=== PATIENT | female | born 1960 | race Caucasian/White ===

== ENCOUNTER 2020-12-30 09:12 | Emergency (ER) | payer MEDICAID, SELFPAY ==
[~2020-12-30] VITALS: Ht 157.5 cm; Wt 49.8 kg
[2020-12-30 09:13] VITALS: BP 131/61
[2020-12-30] MEDS ORDERED: IBUP200T45 PO (09:27)
[2020-12-30 12:25] LABS: BASO # 0.1 10^3/uL (0.0-0.2); BASO % 1.2 % (0.0-1.0); EOS # 0.1 10^3/uL (0.0-0.5); EOS % 1.7 % (0.0-3.0); HEMOGLOBIN 13.8 g/dl (12.0-15.5); LYMPH # 1.8 10^3/uL (1.5-5.0); LYMPH % 31.5 % (24.0-44.0); MEAN CORPUSCULAR HEMOGLOBIN 30.9 pg (27.0-33.0); MEAN CORPUSCULAR HGB CONC 32.1 g/dl (32.0-36.5); MEAN CORPUSCULAR VOLUME 96.2 fl (80.0-96.0); MONO # 0.5 10^3/uL (0.0-0.8); MONO % 7.8 % (2.0-8.0); NEUTROPHILS # 3.3 10^3/uL (1.5-8.5); NEUTROPHILS % 57.6 % (36.0-66.0); PLATELET COUNT, AUTOMATED 340 10^3/uL (150-450); RED BLOOD COUNT 4.47 10^6/uL (4.00-5.40); WHITE BLOOD COUNT 5.8 10^3/uL (4.0-10.0)
--- NOTE | 2020-12-30 12:26 | REP ---
INDICATION: L shoulder pain COMPARISON: None. TECHNIQUE: Axial noncontrast images from the skull base to the thoracic inlet with coronal reformations. This CT examination was performed using the following dose reduction techniques: Automated exposure control, adjustment of mA and/or kv according to the patient's size, and use of iterative reconstruction technique. FINDINGS: Age-related atrophy with periventricular leukomalacia and microvascular ischemic changes are appreciated. The ventricles and sulci are symmetric. Fitch-white differentiation is maintained. There is no evidence for acute intracranial hemorrhage, mass/mass effect, pathology or infarction. No extra-axial fluid collection. Calvarium is intact. Paranasal sinuses and mastoid air cells are clear. IMPRESSION: Age-related atrophy and microvascular ischemic changes. No acute intracranial hemorrhage, infarction, or mass/mass effect. <Electronically signed by Parminder Corey > 12/30/20 [id number]
--- NOTE | 2020-12-30 12:30 | REP ---
INDICATION: L shoulder pain COMPARISON: None. TECHNIQUE: Axial noncontrast images from the skull base to the thoracic inlet with coronal and sagittal re-formations This CT examination was performed using the following dose reduction techniques: Automated exposure control, adjustment of mA and/or kv according to the patient's size, and use of iterative reconstruction technique. FINDINGS: There is mild reversal of normal lordosis centered at approximately C4-5 and chronic 2 mm of anterolisthesis at C3-4 level. No evidence for acute fracture/compression injury. Advanced degenerative changes include endplate sclerosis/heterogeneity, disc space narrowing and osteophytosis with facet arthropathy primarily involving C5-6 and to a lesser extent C4-5 and C6-7. There is chronic canal stenosis and narrowing to the neural foramen involving C5-6 and C4-5 levels (right greater than left). IMPRESSION: Advanced multilevel degenerative spondylosis. <Electronically signed by Parminder Corey > 12/30/20 [id number]
--- NOTE | 2020-12-30 12:43 | REP ---
INDICATION: L shoulder pain COMPARISON: None. TECHNIQUE: Internal rotation, external rotation, and Y view. FINDINGS: No acute fracture or dislocation. The acromioclavicular and glenohumeral joints are intact. No periarticular calcifications or degenerative changes are appreciated. Sub acromial space is normal. Surrounding soft tissues are unremarkable. IMPRESSION: Normal age-appropriate left shoulder radiographs. <Electronically signed by Parminder Croey > 12/30/20 [id number]
[2020-12-30 12:57] LABS: ALT/SGPT 23 U/L (12-78); BILIRUBIN,DIRECT 0.1 MG/DL (0.0-0.2); BILIRUBIN,TOTAL 0.4 MG/DL (0.2-1.0); BLOOD UREA NITROGEN 11 MG/DL (7-18); CALCIUM LEVEL 9.6 MG/DL (8.8-10.2); CARBON DIOXIDE LEVEL 29 MEQ/L (21-32); CHLORIDE LEVEL 109 MEQ/L (98-107); CREATININE FOR GFR 0.65 MG/DL (0.55-1.30); GLOMERULAR FILTRATION RATE > 60.0 (>45); GLUCOSE, FASTING 89 MG/DL (70-100); POTASSIUM SERUM 4.3 MEQ/L (3.5-5.1); SODIUM LEVEL 143 MEQ/L (136-145); TOTAL PROTEIN 7.1 GM/DL (6.4-8.2)
[2020-12-30 13:02] LABS: CK-MB VALUE MASS < 1.0 NG/ML (<3.6); CPK CREATINE PHOSPHOKINASE 76 U/L (26-192); MB/CK RELATIVE INDEX 1.32 (< OR =4); TROPONIN I < 0.02 NG/ML (< 0.10)
[2020-12-30 13:03] LABS: APPEARANCE, URINE CLEAR (CLEAR); BACTERIA, URINE AUTO NEGATIVE (NEGATIVE); BILIRUBIN, URINE AUTO NEGATIVE (NEGATIVE); BLOOD, URINE BLOOD NEGATIVE (NEGATIVE); COLOR, URINE YELLOW (YELLOW); GLUCOSE, URINE (UA) AUTO NEGATIVE (NEGATIVE); KETONE, URINE AUTO NEGATIVE (NEGATIVE); LEUKOCYTE ESTERASE, URINE AUTO NEGATIVE (NEGATIVE); MUCUS, URINE SMALL (NEGATIVE); NITRITE, URINE AUTO NEGATIVE (NEGATIVE); PROTEIN, URINE AUTO NEGATIVE (NEGATIVE); RBC, URINE AUTO 0 /HPF (0-3); SPECIFIC GRAVITY URINE AUTO 1.012 (1.002-1.035); SQUAMOUS EPITHELIAL CELL UR AU 0 /HPF (0-6); UROBILINOGEN, URINE AUTO 0.2 mg/dL (0.0-2.0); WBC, URINE AUTO 0 /HPF (0-3)
[2020-12-30 13:21] LABS: AMPHETAMINES LEVEL URINE NEGATIVE (NEGATIVE); BARBITURATES URINE NEGATIVE (NEGATIVE); BENZODIAZEPINES URINE NEGATIVE (NEGATIVE); CANNABINOIDS URINE NEGATIVE (NEGATIVE); COCAINE METABOLITE URINE NEGATIVE (NEGATIVE); METHADONE URINE NEGATIVE (NEGATIVE); OPIATES URINE NEGATIVE (NEGATIVE); PHENCYCLIDINE URINE NEGATIVE (NEGATIVE)
[2020-12-30 13:59] LABS: C REACTIVE PROTEIN QUANTITATIV < 0.30 MG/DL (0.00-0.30)
[2020-12-30 14:11] LABS: VITAMIN B12 LEVEL 441 PG/ML (247-911)
[2020-12-30 14:33] LABS: ERYTHROCYTE SEDIMENTATION RATE 7 mm/hr (0-30)
--- NOTE | 2020-12-30 17:45 | ECGEPIP ---
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
== END 2020-12-30 14:47 | disposition home or self-care (01) ==
LOC: M ED 09:12
DX: M47.812 Spondylosis without myelopathy or radiculopathy, cervical region (principal); M19.012 Primary osteoarthritis, left shoulder; G30.8 Other Alzheimer's disease; R00.1 Bradycardia, unspecified; I45.19 Other right bundle-branch block; F17.200 Nicotine dependence, unspecified, uncomplicated

== ENCOUNTER 2021-05-03 09:45 | Inpatient (IN) | payer MEDICAID ==
[~2021-05-03] VITALS: Ht 170.2 cm; Wt 43.2 kg
[~2021-05-03 09:45] MED LIST: IBUP200T46 PO
[2021-05-03] MEDS ORDERED: DONE10TA90 PO (10:11)
[2021-05-03] MEDS ORDERED: VITA200016 PO (10:11)
[2021-05-03] MEDS ORDERED: CYAN1000VL IM (10:11)
[2021-05-03] MEDS ORDERED: MEMA10TA19 PO (10:11)
[2021-05-03 10:54] LABS: BASO % 0.6 % (0.0-1.0); EOS # 0.1 10^3/uL (0.0-0.5); EOS % 1.9 % (0.0-3.0); HEMATOCRIT 40.4 % (36.0-47.0); HEMOGLOBIN 12.8 g/dl (12.0-15.5); LYMPH # 1.6 10^3/uL (1.5-5.0); LYMPH % 24.8 % (24.0-44.0); MEAN CORPUSCULAR HEMOGLOBIN 30.9 pg (27.0-33.0); MEAN CORPUSCULAR HGB CONC 31.7 g/dl (32.0-36.5); MEAN CORPUSCULAR VOLUME 97.6 fl (80.0-96.0); MONO # 0.6 10^3/uL (0.0-0.8); MONO % 9.1 % (2.0-8.0); NEUTROPHILS % 63.3 % (36.0-66.0); PLATELET COUNT, AUTOMATED 309 10^3/uL (150-450); RED BLOOD COUNT 4.14 10^6/uL (4.00-5.40); WHITE BLOOD COUNT 6.3 10^3/uL (4.0-10.0)
[2021-05-03 11:26] LABS: CK-MB VALUE MASS < 1.0 NG/ML (<3.6); CPK CREATINE PHOSPHOKINASE 83 U/L (26-192); RSV AMPLIFICATION NEGATIVE (NEGATIVE)
[2021-05-03 11:32] LABS: ALBUMIN 3.7 GM/DL (3.2-5.2); ALT/SGPT 42 U/L (12-78); BILIRUBIN,DIRECT < 0.1 MG/DL (0.0-0.2); BILIRUBIN,TOTAL 0.3 MG/DL (0.2-1.0); BLOOD UREA NITROGEN 8 MG/DL (7-18); CARBON DIOXIDE LEVEL 29 MEQ/L (21-32); CHLORIDE LEVEL 107 MEQ/L (98-107); CREATININE FOR GFR 0.55 MG/DL (0.55-1.30); GLOMERULAR FILTRATION RATE > 60.0 (>45); GLUCOSE, FASTING 96 MG/DL (70-100); NT-PRO BNP 114 PG/ML (<125); POTASSIUM SERUM 3.5 MEQ/L (3.5-5.1); SODIUM LEVEL 144 MEQ/L (136-145); TOTAL PROTEIN 6.8 GM/DL (6.4-8.2)
[2021-05-03] MEDS ORDERED: HOME MED LIST COMPLETE! XX SCH (14:40)
[2021-05-03] MEDS ORDERED: ACETAMINOPHEN TAB 650MG DOSE (2X325MG) PO PRN (14:55)
[2021-05-03] MEDS: QUEtiapine FUMARATE 12.5 MG HALF-TAB PO PRN (15:45)
[2021-05-03 17:27] VITALS: BP 136/70
[2021-05-03] MEDS ORDERED: NICOTINE 14 MG/24 HR TRANSDERMAL TD PRN (17:50)
[2021-05-03] MEDS: ENOXAPARIN 40MG/0.4ML SYRINGE (J1650 PER 10MG) SC SCH (18:07)
[2021-05-03] MEDS: DONEPEZIL 5 MG TAB PO SCH (21:05)
[2021-05-03] MEDS: MEMANTINE 5MG TABLET (NAMENDA) PO SCH (21:05)
[2021-05-03 22:00] VITALS: BP 124/53
[2021-05-04 05:45] VITALS: BP 121/66
[2021-05-04 06:38] LABS: HEMATOCRIT 39.8 % (36.0-47.0); HEMOGLOBIN 12.7 g/dl (12.0-15.5); MEAN CORPUSCULAR HEMOGLOBIN 30.8 pg (27.0-33.0); MEAN CORPUSCULAR HGB CONC 31.9 g/dl (32.0-36.5); MEAN CORPUSCULAR VOLUME 96.6 fl (80.0-96.0); PLATELET COUNT, AUTOMATED 319 10^3/uL (150-450); RED BLOOD COUNT 4.12 10^6/uL (4.00-5.40); WHITE BLOOD COUNT 4.9 10^3/uL (4.0-10.0)
[2021-05-04 07:01] LABS: BLOOD UREA NITROGEN 10 MG/DL (7-18); CALCIUM LEVEL 8.8 MG/DL (8.8-10.2); CARBON DIOXIDE LEVEL 29 MEQ/L (21-32); CHLORIDE LEVEL 108 MEQ/L (98-107); CREATININE FOR GFR 0.58 MG/DL (0.55-1.30); GLOMERULAR FILTRATION RATE > 60.0 (>45); GLUCOSE, FASTING 81 MG/DL (70-100); POTASSIUM SERUM 3.7 MEQ/L (3.5-5.1); SODIUM LEVEL 141 MEQ/L (136-145)
[2021-05-04] MEDS: ENOXAPARIN 40MG/0.4ML SYRINGE (J1650 PER 10MG) SC SCH (08:10)
[2021-05-04] MEDS: MEMANTINE 5MG TABLET (NAMENDA) PO SCH ×2 (08:10→20:54)
[2021-05-04 14:00] VITALS: BP 101/53
[2021-05-04] MEDS: DONEPEZIL 5 MG TAB PO SCH (20:54)
[2021-05-04 22:00] VITALS: BP 114/56
[2021-05-05 06:00] VITALS: BP 116/59
[2021-05-05] MEDS: MEMANTINE 5MG TABLET (NAMENDA) PO SCH ×2 (08:43→19:54)
[2021-05-05] MEDS: ENOXAPARIN 40MG/0.4ML SYRINGE (J1650 PER 10MG) SC SCH (08:43)
[2021-05-05 09:41] LABS: FOLATE 19.7 NG/ML (>5.4); TOTAL 25(OH) VITAMIN D 34.6 NG/ML (30.0-100.0); VITAMIN B12 LEVEL 227 PG/ML (247-911)
[2021-05-05] MEDS: DONEPEZIL 5 MG TAB PO SCH (19:54)
[2021-05-06 06:00] VITALS: BP 114/55
[2021-05-06] MEDS: MEMANTINE 5MG TABLET (NAMENDA) PO SCH ×2 (09:01→20:14)
[2021-05-06] MEDS: ENOXAPARIN 40MG/0.4ML SYRINGE (J1650 PER 10MG) SC SCH (09:01)
[2021-05-06] MEDS: DONEPEZIL 5 MG TAB PO SCH (20:14)
[2021-05-07 05:53] VITALS: BP 146/79
[2021-05-07 07:18] LABS: HEMATOCRIT 39.4 % (36.0-47.0); HEMOGLOBIN 12.7 g/dl (12.0-15.5); MEAN CORPUSCULAR HEMOGLOBIN 31.2 pg (27.0-33.0); MEAN CORPUSCULAR HGB CONC 32.2 g/dl (32.0-36.5); MEAN CORPUSCULAR VOLUME 96.8 fl (80.0-96.0); PLATELET COUNT, AUTOMATED 313 10^3/uL (150-450); RED BLOOD COUNT 4.07 10^6/uL (4.00-5.40); WHITE BLOOD COUNT 4.1 10^3/uL (4.0-10.0)
[2021-05-07 07:43] LABS: BLOOD UREA NITROGEN 9 MG/DL (7-18); CALCIUM LEVEL 8.9 MG/DL (8.8-10.2); CARBON DIOXIDE LEVEL 28 MEQ/L (21-32); CHLORIDE LEVEL 108 MEQ/L (98-107); CREATININE FOR GFR 0.63 MG/DL (0.55-1.30); GLOMERULAR FILTRATION RATE > 60.0 (>45); GLUCOSE, FASTING 91 MG/DL (70-100); SODIUM LEVEL 143 MEQ/L (136-145)
[2021-05-07] MEDS: MEMANTINE 5MG TABLET (NAMENDA) PO SCH ×2 (08:01→20:04)
[2021-05-07] MEDS: ENOXAPARIN 40MG/0.4ML SYRINGE (J1650 PER 10MG) SC SCH (08:01)
[2021-05-07] MEDS: DONEPEZIL 5 MG TAB PO SCH (20:04)
[2021-05-08 06:03] VITALS: BP 127/59
[2021-05-08] MEDS: ENOXAPARIN 40MG/0.4ML SYRINGE (J1650 PER 10MG) SC SCH (08:25)
[2021-05-08] MEDS: MEMANTINE 5MG TABLET (NAMENDA) PO SCH ×2 (08:25→20:07)
[2021-05-08] MEDS: DONEPEZIL 5 MG TAB PO SCH (20:07)
[2021-05-09 06:00] VITALS: BP 115/61
[2021-05-09] MEDS: MEMANTINE 5MG TABLET (NAMENDA) PO SCH ×2 (08:06→19:57)
[2021-05-09] MEDS: ENOXAPARIN 40MG/0.4ML SYRINGE (J1650 PER 10MG) SC SCH (08:07)
[2021-05-09] MEDS: DONEPEZIL 5 MG TAB PO SCH (19:57)
[2021-05-10 06:00] VITALS: BP 133/61
[2021-05-10 06:24] LABS: HEMATOCRIT 36.6 % (36.0-47.0); HEMOGLOBIN 11.5 g/dl (12.0-15.5); MEAN CORPUSCULAR HGB CONC 31.4 g/dl (32.0-36.5); MEAN CORPUSCULAR VOLUME 98.7 fl (80.0-96.0); PLATELET COUNT, AUTOMATED 273 10^3/uL (150-450); RED BLOOD COUNT 3.71 10^6/uL (4.00-5.40); WHITE BLOOD COUNT 4.6 10^3/uL (4.0-10.0)
[2021-05-10 06:44] LABS: BLOOD UREA NITROGEN 9 MG/DL (7-18); CARBON DIOXIDE LEVEL 31 MEQ/L (21-32); CHLORIDE LEVEL 110 MEQ/L (98-107); CREATININE FOR GFR 0.61 MG/DL (0.55-1.30); GLOMERULAR FILTRATION RATE > 60.0 (>45); GLUCOSE, FASTING 80 MG/DL (70-100); POTASSIUM SERUM 3.9 MEQ/L (3.5-5.1); SODIUM LEVEL 145 MEQ/L (136-145)
[2021-05-10 06:45] LABS: CALCIUM LEVEL 8.5 MG/DL (8.8-10.2)
[2021-05-10] MEDS: ENOXAPARIN 40MG/0.4ML SYRINGE (J1650 PER 10MG) SC SCH (08:28)
[2021-05-10] MEDS: MEMANTINE 5MG TABLET (NAMENDA) PO SCH ×2 (08:28→21:48)
[2021-05-10] MEDS ORDERED: TUBERCULIN PPD 5 UNITS/0.1 ML ID ONE (16:00)
[2021-05-10] MEDS: DONEPEZIL 5 MG TAB PO SCH (21:48)
[2021-05-11 06:00] VITALS: BP 109/59
[2021-05-11] MEDS: MEMANTINE 5MG TABLET (NAMENDA) PO SCH ×2 (08:42→20:26)
[2021-05-11] MEDS: ENOXAPARIN 40MG/0.4ML SYRINGE (J1650 PER 10MG) SC SCH (08:42)
[2021-05-11] MEDS: CYANOCOBALAMIN 1,000MCG/ML VIAL (J3420) IM SCH (14:11)
[2021-05-11] MEDS: DONEPEZIL 5 MG TAB PO SCH (20:26)
[2021-05-12 06:00] VITALS: BP 133/61
[2021-05-12] MEDS: MEMANTINE 5MG TABLET (NAMENDA) PO SCH ×2 (09:34→21:46)
[2021-05-12] MEDS: ENOXAPARIN 40MG/0.4ML SYRINGE (J1650 PER 10MG) SC SCH (09:34)
[2021-05-12] MEDS: CYANOCOBALAMIN 1,000MCG/ML VIAL (J3420) IM SCH (09:34)
[2021-05-12] MEDS ORDERED: PPD DOCUMENTATION ENTRY MISC XX ONE (16:00)
[2021-05-12] MEDS: DONEPEZIL 5 MG TAB PO SCH (21:46)
[2021-05-13 06:00] VITALS: BP 102/54
[2021-05-13 06:49] LABS: HEMATOCRIT 35.9 % (36.0-47.0); HEMOGLOBIN 11.5 g/dl (12.0-15.5); MEAN CORPUSCULAR VOLUME 96.8 fl (80.0-96.0); PLATELET COUNT, AUTOMATED 278 10^3/uL (150-450); RED BLOOD COUNT 3.71 10^6/uL (4.00-5.40); WHITE BLOOD COUNT 5.3 10^3/uL (4.0-10.0)
[2021-05-13 07:10] LABS: BLOOD UREA NITROGEN 13 MG/DL (7-18); CALCIUM LEVEL 8.5 MG/DL (8.8-10.2); CARBON DIOXIDE LEVEL 25 MEQ/L (21-32); CHLORIDE LEVEL 111 MEQ/L (98-107); CREATININE FOR GFR 0.54 MG/DL (0.55-1.30); GLOMERULAR FILTRATION RATE > 60.0 (>45); GLUCOSE, FASTING 86 MG/DL (70-100); POTASSIUM SERUM 3.5 MEQ/L (3.5-5.1); SODIUM LEVEL 143 MEQ/L (136-145)
[2021-05-13] MEDS: CYANOCOBALAMIN 1,000MCG/ML VIAL (J3420) IM SCH (08:38)
[2021-05-13] MEDS: ENOXAPARIN 40MG/0.4ML SYRINGE (J1650 PER 10MG) SC SCH (08:38)
[2021-05-13] MEDS: MEMANTINE 5MG TABLET (NAMENDA) PO SCH ×2 (08:38→21:52)
[2021-05-13] MEDS: QUEtiapine FUMARATE 12.5 MG HALF-TAB PO PRN (17:31)
[2021-05-13] MEDS: DONEPEZIL 5 MG TAB PO SCH (21:52)
[2021-05-14 06:00] VITALS: BP 112/54
[2021-05-14] MEDS: CYANOCOBALAMIN 1,000MCG/ML VIAL (J3420) IM SCH (10:14)
[2021-05-14] MEDS: ENOXAPARIN 40MG/0.4ML SYRINGE (J1650 PER 10MG) SC SCH (10:14)
[2021-05-14] MEDS: MEMANTINE 5MG TABLET (NAMENDA) PO SCH ×2 (10:15→21:40)
[2021-05-14] MEDS: DONEPEZIL 5 MG TAB PO SCH (21:40)
[2021-05-15 06:00] VITALS: BP 102/60
[2021-05-15] MEDS: MEMANTINE 5MG TABLET (NAMENDA) PO SCH ×2 (08:45→20:14)
[2021-05-15] MEDS: ENOXAPARIN 40MG/0.4ML SYRINGE (J1650 PER 10MG) SC SCH (08:45)
[2021-05-15] MEDS: CYANOCOBALAMIN 1,000MCG/ML VIAL (J3420) IM SCH (08:45)
[2021-05-15] MEDS: DONEPEZIL 5 MG TAB PO SCH (20:14)
[2021-05-16 06:00] VITALS: BP 124/70
[2021-05-16 06:47] LABS: HEMATOCRIT 38.5 % (36.0-47.0); HEMOGLOBIN 12.4 g/dl (12.0-15.5); MEAN CORPUSCULAR HEMOGLOBIN 31.3 pg (27.0-33.0); MEAN CORPUSCULAR HGB CONC 32.2 g/dl (32.0-36.5); MEAN CORPUSCULAR VOLUME 97.2 fl (80.0-96.0); PLATELET COUNT, AUTOMATED 310 10^3/uL (150-450); RED BLOOD COUNT 3.96 10^6/uL (4.00-5.40); WHITE BLOOD COUNT 6.3 10^3/uL (4.0-10.0)
[2021-05-16 07:06] LABS: BLOOD UREA NITROGEN 9 MG/DL (7-18); CALCIUM LEVEL 8.9 MG/DL (8.8-10.2); CARBON DIOXIDE LEVEL 28 MEQ/L (21-32); CHLORIDE LEVEL 107 MEQ/L (98-107); CREATININE FOR GFR 0.57 MG/DL (0.55-1.30); GLOMERULAR FILTRATION RATE > 60.0 (>45); GLUCOSE, FASTING 86 MG/DL (70-100); POTASSIUM SERUM 3.6 MEQ/L (3.5-5.1); SODIUM LEVEL 142 MEQ/L (136-145)
[2021-05-16] MEDS: ENOXAPARIN 40MG/0.4ML SYRINGE (J1650 PER 10MG) SC SCH (08:45)
[2021-05-16] MEDS: MEMANTINE 5MG TABLET (NAMENDA) PO SCH ×2 (08:45→20:31)
[2021-05-16] MEDS: CYANOCOBALAMIN 1,000MCG/ML VIAL (J3420) IM SCH (08:45)
[2021-05-16] MEDS: DONEPEZIL 5 MG TAB PO SCH (20:32)
[2021-05-17 06:00] VITALS: BP 108/63
[2021-05-17] MEDS: ENOXAPARIN 40MG/0.4ML SYRINGE (J1650 PER 10MG) SC SCH (07:59)
[2021-05-17] MEDS: MEMANTINE 5MG TABLET (NAMENDA) PO SCH ×2 (07:59→20:28)
[2021-05-17] MEDS: CYANOCOBALAMIN 1,000MCG/ML VIAL (J3420) IM SCH (12:23)
[2021-05-17] MEDS: DONEPEZIL 5 MG TAB PO SCH (20:28)
[2021-05-18 06:00] VITALS: BP 116/62
[2021-05-18] MEDS ORDERED: QUET1TAB17 PO ×2 (07:43→08:04)
[2021-05-18] MEDS ORDERED: NICO14PA TD (07:43)
[2021-05-18] MEDS: MEMANTINE 5MG TABLET (NAMENDA) PO SCH (07:58)
[2021-05-18] MEDS: ENOXAPARIN 40MG/0.4ML SYRINGE (J1650 PER 10MG) SC SCH (07:58)
[2021-05-18] MEDS ORDERED: NICO14DI24 TOP (08:04)
== END 2021-05-18 08:46 | DRG 757 ==
LOC: M ED 09:45 → M ED INP 14:55 → ENRESERV 15:51 → M MSPAV 17:28
PROVIDERS: ADMIT Family Medicine; ATTEND Internal Medicine
DX: F03.90 Unspecified dementia, unspecified severity, without behavioral disturbance, psychotic disturbance, mood disturbance, and anxiety (principal); E46 Unspecified protein-calorie malnutrition; F17.200 Nicotine dependence, unspecified, uncomplicated; Z68.1 Body mass index [BMI] 19.9 or less, adult; Z20.822 Contact with and (suspected) exposure to COVID-19; Z79.899 Other long term (current) drug therapy

== ENCOUNTER 2022-10-03 08:30 | Inpatient (IN) | payer MEDICAID ==
[~2022-10-03] VITALS: Ht 170.2 cm; Wt 79.3 kg
[~2022-10-03 08:30] MED LIST changes: +CYAN1000VL IM; +DONE10TA90 PO; +MEMA10TA19 PO; +NICO14DI24 TOP; +NICO14PA TD; +QUET1TAB17 PO; +VITA200016 PO
[2022-10-03] MEDS ORDERED: ACET-897 PO (08:54)
[2022-10-03] MEDS ORDERED: MELA3TAB49 PO (08:54)
[2022-10-03] MEDS ORDERED: PAXI10TA13 PO (08:54)
[2022-10-03 09:04] LABS: IONIZED CALCIUM 4.3 MG/DL (4.5-5.3)
[2022-10-03 09:29] LABS: BASO # 0.1 10^3/uL (0.0-0.2); BASO % 0.6 % (0.0-1.0); EOS # 0.2 10^3/uL (0.0-0.5); EOS % 2.3 % (0.0-3.0); HEMATOCRIT 41.6 % (36.0-47.0); HEMOGLOBIN 12.9 g/dl (12.0-15.5); LYMPH # 2.4 10^3/uL (1.5-5.0); LYMPH % 24.9 % (24.0-44.0); MEAN CORPUSCULAR HEMOGLOBIN 28.9 pg (27.0-33.0); MEAN CORPUSCULAR VOLUME 93.1 fl (80.0-96.0); MONO # 0.7 10^3/uL (0.0-0.8); MONO % 7.3 % (2.0-8.0); NEUTROPHILS # 6.2 10^3/uL (1.5-8.5); PLATELET COUNT, AUTOMATED 391 10^3/uL (150-450); RED BLOOD COUNT 4.47 10^6/uL (4.00-5.40); WHITE BLOOD COUNT 9.8 10^3/uL (4.0-10.0)
[2022-10-03 09:34] LABS: ALBUMIN 3.3 G/DL (3.2-5.2); ALKALINE PHOSPHATASE 128 U/L (46-116); ALT/SGPT 14 U/L (7.0-40); AST/SGOT < 8 U/L (<34); BILIRUBIN,DIRECT < 0.1 MG/DL (<0.4); BILIRUBIN,TOTAL 0.3 MG/DL (0.3-1.2); BLOOD UREA NITROGEN 11 MG/DL (9-23); CALCIUM LEVEL 8.5 MG/DL (8.3-10.6); CARBON DIOXIDE LEVEL 26 MMOL/L (20-31); CHLORIDE LEVEL 104 MMOL/L (98-107); CREATININE FOR GFR 0.62 MG/DL (0.55-1.30); GLOMERULAR FILTRATION RATE > 60.0 (>45); GLUCOSE, FASTING 165 MG/DL (74-106); MAGNESIUM LEVEL 2.3 MG/DL (1.8-2.4); PHOSPHORUS LEVEL 3.5 MG/DL (2.4-5.1); POTASSIUM SERUM 3.6 MMOL/L (3.5-5.1); SODIUM LEVEL 140 MMOL/L (136-145); TOTAL PROTEIN 6.4 G/DL (5.7-8.2)
[2022-10-03 10:19] LABS: RSV AMPLIFICATION NEGATIVE (NEGATIVE)
[2022-10-03] MEDS ORDERED: NS 2,000 ML in IV 1 EA IV ONE (10:30)
[2022-10-03] MEDS ORDERED: ISOVUE-370 76% 100ML VIAL As Ordered ONE (11:18)
[2022-10-03] MEDS ORDERED: MED REC IN PROGRESS XX SCH (13:20)
[2022-10-03] MEDS: cefTRIAXone SOD 1 GM in D5W MINI-BAG PLUS 50 ML IV SCH (15:25)
[2022-10-03] MEDS ORDERED: ACET-840 PO (18:21)
[2022-10-03] MEDS ORDERED: DONE10TA90 PO (18:21)
[2022-10-03] MEDS ORDERED: HOME MED LIST COMPLETE! XX SCH (18:30)
[2022-10-03 18:55] VITALS: BP 161/79; TEMP 97.3; O2SAT 96
[2022-10-03 19:54] VITALS: BP 148/72; TEMP 97.6; O2SAT 93
[2022-10-03 23:34] VITALS: BP 150/65; TEMP 98.3; O2SAT 94
[2022-10-04 03:23] VITALS: BP 135/63; TEMP 98.5; O2SAT 94
[2022-10-04 06:13] LABS: HEMATOCRIT 41.4 % (36.0-47.0); HEMOGLOBIN 13.1 g/dl (12.0-15.5); MEAN CORPUSCULAR HGB CONC 31.6 g/dl (32.0-36.5); MEAN CORPUSCULAR VOLUME 91.6 fl (80.0-96.0); PLATELET COUNT, AUTOMATED 394 10^3/uL (150-450); RED BLOOD COUNT 4.52 10^6/uL (4.00-5.40); WHITE BLOOD COUNT 11.9 10^3/uL (4.0-10.0)
[2022-10-04 06:36] LABS: BLOOD UREA NITROGEN 8 MG/DL (9-23); CALCIUM LEVEL 8.6 MG/DL (8.3-10.6); CARBON DIOXIDE LEVEL 26 MMOL/L (20-31); CHLORIDE LEVEL 108 MMOL/L (98-107); CREATININE FOR GFR 0.57 MG/DL (0.55-1.30); GLOMERULAR FILTRATION RATE > 60.0 (>45); GLUCOSE, FASTING 108 MG/DL (74-106); MAGNESIUM LEVEL 2.3 MG/DL (1.8-2.4); POTASSIUM SERUM 3.9 MMOL/L (3.5-5.1); SODIUM LEVEL 141 MMOL/L (136-145)
[2022-10-04 08:14] VITALS: BP 119/59; TEMP 98.5; O2SAT 93
[2022-10-04] MEDS: ENOXAPARIN 40MG/0.4ML SYRINGE (J1650 PER 10MG) SC SCH (08:25)
[2022-10-04] MEDS: cefTRIAXone SOD 1 GM in D5W MINI-BAG PLUS 50 ML IV SCH (14:27)
[2022-10-04 15:52] VITALS: BP 126/62; TEMP 97.6; O2SAT 93
[2022-10-04 20:52] VITALS: BP 139/63; TEMP 98.2; O2SAT 90
[2022-10-04] MEDS ORDERED: DONEPEZIL 5 MG TAB PO SCH (21:10)
[2022-10-04] MEDS: MEMANTINE 5MG TABLET (NAMENDA) PO SCH (22:40)
[2022-10-04] MEDS: RAMELTEON 8 MG TAB (ROZEREM) PO PRN (22:40)
[2022-10-05 00:16] VITALS: BP 124/62; TEMP 98.4; O2SAT 90
[2022-10-05 03:57] VITALS: BP 113/54; TEMP 98; O2SAT 90
[2022-10-05 06:15] LABS: HEMATOCRIT 42.1 % (36.0-47.0); HEMOGLOBIN 13.3 g/dl (12.0-15.5); MEAN CORPUSCULAR HEMOGLOBIN 29.2 pg (27.0-33.0); MEAN CORPUSCULAR HGB CONC 31.6 g/dl (32.0-36.5); MEAN CORPUSCULAR VOLUME 92.3 fl (80.0-96.0); PLATELET COUNT, AUTOMATED 382 10^3/uL (150-450); RED BLOOD COUNT 4.56 10^6/uL (4.00-5.40); WHITE BLOOD COUNT 9.2 10^3/uL (4.0-10.0)
[2022-10-05 06:41] LABS: ALBUMIN 3.2 G/DL (3.2-5.2); ALKALINE PHOSPHATASE 120 U/L (46-116); ALT/SGPT 17 U/L (7.0-40); AST/SGOT 28 U/L (<34); BILIRUBIN,TOTAL 0.4 MG/DL (0.3-1.2); BLOOD UREA NITROGEN 10 MG/DL (9-23); CALCIUM LEVEL 8.5 MG/DL (8.3-10.6); CARBON DIOXIDE LEVEL 26 MMOL/L (20-31); CHLORIDE LEVEL 107 MMOL/L (98-107); GLOMERULAR FILTRATION RATE > 60.0 (>45); GLUCOSE, FASTING 104 MG/DL (74-106); POTASSIUM SERUM 4.1 MMOL/L (3.5-5.1); SODIUM LEVEL 142 MMOL/L (136-145); TOTAL PROTEIN 6.2 G/DL (5.7-8.2)
[2022-10-05 07:28] VITALS: BP 128/62; TEMP 98.3; O2SAT 90
[2022-10-05] MEDS: ENOXAPARIN 40MG/0.4ML SYRINGE (J1650 PER 10MG) SC SCH (08:57)
[2022-10-05] MEDS: DONEPEZIL 5 MG TAB PO SCH (08:58)
[2022-10-05] MEDS: PARoxetine 10MG TABLET PO SCH (08:58)
[2022-10-05] MEDS: MEMANTINE 5MG TABLET (NAMENDA) PO SCH ×2 (08:58→21:10)
[2022-10-05 14:00] VITALS: BP 124/65; TEMP 97; O2SAT 93
[2022-10-05] MEDS: cefTRIAXone SOD 1 GM in D5W MINI-BAG PLUS 50 ML IV SCH (14:12)
[2022-10-05 21:02] VITALS: BP 117/60; TEMP 97.3; O2SAT 91
[2022-10-05] MEDS: RAMELTEON 8 MG TAB (ROZEREM) PO PRN (21:10)
[2022-10-06 05:07] VITALS: BP 117/60; TEMP 97.5; O2SAT 89
[2022-10-06 05:49] LABS: HEMATOCRIT 42.1 % (36.0-47.0); HEMOGLOBIN 13.4 g/dl (12.0-15.5); MEAN CORPUSCULAR HEMOGLOBIN 29.1 pg (27.0-33.0); MEAN CORPUSCULAR HGB CONC 31.8 g/dl (32.0-36.5); MEAN CORPUSCULAR VOLUME 91.5 fl (80.0-96.0); PLATELET COUNT, AUTOMATED 354 10^3/uL (150-450); WHITE BLOOD COUNT 8.1 10^3/uL (4.0-10.0)
[2022-10-06 06:15] LABS: ALBUMIN 3.1 G/DL (3.2-5.2); ALKALINE PHOSPHATASE 115 U/L (46-116); ALT/SGPT 32 U/L (7.0-40); AST/SGOT < 8 U/L (<34); BILIRUBIN,TOTAL 0.5 MG/DL (0.3-1.2); BLOOD UREA NITROGEN 13 MG/DL (9-23); CALCIUM LEVEL 8.4 MG/DL (8.3-10.6); CARBON DIOXIDE LEVEL 26 MMOL/L (20-31); CHLORIDE LEVEL 107 MMOL/L (98-107); CREATININE FOR GFR 0.66 MG/DL (0.55-1.30); GLOMERULAR FILTRATION RATE > 60.0 (>45); GLUCOSE, FASTING 112 MG/DL (74-106); POTASSIUM SERUM 3.6 MMOL/L (3.5-5.1); SODIUM LEVEL 142 MMOL/L (136-145)
[2022-10-06 07:50] LABS: PROCALCITONIN <0.04 ng/ml
[2022-10-06] MEDS: DONEPEZIL 5 MG TAB PO SCH (08:23)
[2022-10-06] MEDS: ENOXAPARIN 40MG/0.4ML SYRINGE (J1650 PER 10MG) SC SCH (08:23)
[2022-10-06] MEDS: MEMANTINE 5MG TABLET (NAMENDA) PO SCH ×2 (08:23→20:08)
[2022-10-06] MEDS: PARoxetine 10MG TABLET PO SCH (08:23)
[2022-10-06 14:00] VITALS: BP 118/65; TEMP 97.3; O2SAT 92
[2022-10-06] MEDS: cefTRIAXone SOD 1 GM in D5W MINI-BAG PLUS 50 ML IV SCH (14:49)
[2022-10-06 21:03] VITALS: BP 119/64; TEMP 97.9; O2SAT 90
[2022-10-07 05:38] VITALS: BP 139/82; TEMP 97.7; O2SAT 95
[2022-10-07 06:04] LABS: HEMATOCRIT 40.9 % (36.0-47.0); MEAN CORPUSCULAR HEMOGLOBIN 29.2 pg (27.0-33.0); MEAN CORPUSCULAR HGB CONC 31.8 g/dl (32.0-36.5); MEAN CORPUSCULAR VOLUME 91.9 fl (80.0-96.0); PLATELET COUNT, AUTOMATED 378 10^3/uL (150-450); RED BLOOD COUNT 4.45 10^6/uL (4.00-5.40); WHITE BLOOD COUNT 7.8 10^3/uL (4.0-10.0)
[2022-10-07 06:25] LABS: ALBUMIN 3.1 G/DL (3.2-5.2); ALKALINE PHOSPHATASE 115 U/L (46-116); ALT/SGPT 44 U/L (7.0-40); AST/SGOT 41 U/L (<34); BILIRUBIN,TOTAL 0.4 MG/DL (0.3-1.2); BLOOD UREA NITROGEN 10 MG/DL (9-23); CALCIUM LEVEL 8.7 MG/DL (8.3-10.6); CARBON DIOXIDE LEVEL 24 MMOL/L (20-31); CHLORIDE LEVEL 106 MMOL/L (98-107); CREATININE FOR GFR 0.65 MG/DL (0.55-1.30); GLOMERULAR FILTRATION RATE > 60.0 (>45); GLUCOSE, FASTING 100 MG/DL (74-106); POTASSIUM SERUM 3.6 MMOL/L (3.5-5.1); SODIUM LEVEL 140 MMOL/L (136-145); TOTAL PROTEIN 6.2 G/DL (5.7-8.2)
[2022-10-07] MEDS: PARoxetine 10MG TABLET PO SCH (08:14)
[2022-10-07] MEDS: DONEPEZIL 5 MG TAB PO SCH (08:15)
[2022-10-07] MEDS: ENOXAPARIN 40MG/0.4ML SYRINGE (J1650 PER 10MG) SC SCH (08:15)
[2022-10-07] MEDS: MEMANTINE 5MG TABLET (NAMENDA) PO SCH ×2 (08:15→20:24)
[2022-10-07] MEDS: cefTRIAXone SOD 1 GM in D5W MINI-BAG PLUS 50 ML IV SCH (13:51)
[2022-10-07 14:00] VITALS: BP 110/69; TEMP 97.3; O2SAT 94
[2022-10-07] MEDS: CEPHALEXIN 500 MG CAP PO SCH ×2 (17:48→23:20)
[2022-10-08] MEDS: CEPHALEXIN 500 MG CAP PO SCH ×4 (05:26→23:54)
[2022-10-08 06:00] VITALS: BP 141/72; TEMP 97.7; O2SAT 95
[2022-10-08 06:31] LABS: HEMATOCRIT 39.3 % (36.0-47.0); HEMOGLOBIN 12.7 g/dl (12.0-15.5); MEAN CORPUSCULAR HEMOGLOBIN 29.6 pg (27.0-33.0); MEAN CORPUSCULAR HGB CONC 32.3 g/dl (32.0-36.5); MEAN CORPUSCULAR VOLUME 91.6 fl (80.0-96.0); PLATELET COUNT, AUTOMATED 362 10^3/uL (150-450); RED BLOOD COUNT 4.29 10^6/uL (4.00-5.40); WHITE BLOOD COUNT 8.2 10^3/uL (4.0-10.0)
[2022-10-08 07:06] LABS: ALBUMIN 3.3 G/DL (3.2-5.2); ALKALINE PHOSPHATASE 119 U/L (46-116); ALT/SGPT 71 U/L (7.0-40); AST/SGOT 57 U/L (<34); BILIRUBIN,TOTAL 0.4 MG/DL (0.3-1.2); BLOOD UREA NITROGEN 6 MG/DL (9-23); CALCIUM LEVEL 8.6 MG/DL (8.3-10.6); CARBON DIOXIDE LEVEL 25 MMOL/L (20-31); CHLORIDE LEVEL 105 MMOL/L (98-107); CREATININE FOR GFR 0.64 MG/DL (0.55-1.30); GLOMERULAR FILTRATION RATE > 60.0 (>45); GLUCOSE, FASTING 95 MG/DL (74-106); POTASSIUM SERUM 3.5 MMOL/L (3.5-5.1); SODIUM LEVEL 141 MMOL/L (136-145); TOTAL PROTEIN 6.2 G/DL (5.7-8.2)
[2022-10-08] MEDS: DONEPEZIL 5 MG TAB PO SCH (08:51)
[2022-10-08] MEDS: ENOXAPARIN 40MG/0.4ML SYRINGE (J1650 PER 10MG) SC SCH (08:51)
[2022-10-08] MEDS: MEMANTINE 5MG TABLET (NAMENDA) PO SCH ×2 (08:51→20:22)
[2022-10-08] MEDS: PARoxetine 10MG TABLET PO SCH (08:51)
[2022-10-09] MEDS: CEPHALEXIN 500 MG CAP PO SCH ×2 (05:26→11:49)
[2022-10-09 06:00] VITALS: BP 135/73; TEMP 97.2; O2SAT 95
[2022-10-09 06:37] LABS: HEMATOCRIT 41.7 % (36.0-47.0); HEMOGLOBIN 13.6 g/dl (12.0-15.5); MEAN CORPUSCULAR HEMOGLOBIN 29.8 pg (27.0-33.0); MEAN CORPUSCULAR HGB CONC 32.6 g/dl (32.0-36.5); MEAN CORPUSCULAR VOLUME 91.2 fl (80.0-96.0); PLATELET COUNT, AUTOMATED 370 10^3/uL (150-450); RED BLOOD COUNT 4.57 10^6/uL (4.00-5.40); WHITE BLOOD COUNT 7.7 10^3/uL (4.0-10.0)
[2022-10-09 07:11] LABS: ALBUMIN 3.4 G/DL (3.2-5.2); ALKALINE PHOSPHATASE 124 U/L (46-116); ALT/SGPT 69 U/L (7.0-40); AST/SGOT 44 U/L (<34); BILIRUBIN,TOTAL 0.5 MG/DL (0.3-1.2); BLOOD UREA NITROGEN 7 MG/DL (9-23); CALCIUM LEVEL 8.6 MG/DL (8.3-10.6); CARBON DIOXIDE LEVEL 26 MMOL/L (20-31); CHLORIDE LEVEL 105 MMOL/L (98-107); CREATININE FOR GFR 0.63 MG/DL (0.55-1.30); GLOMERULAR FILTRATION RATE > 60.0 (>45); GLUCOSE, FASTING 103 MG/DL (74-106); POTASSIUM SERUM 3.4 MMOL/L (3.5-5.1); SODIUM LEVEL 140 MMOL/L (136-145); TOTAL PROTEIN 6.5 G/DL (5.7-8.2)
[2022-10-09] MEDS: PARoxetine 10MG TABLET PO SCH (08:35)
[2022-10-09] MEDS: DONEPEZIL 5 MG TAB PO SCH (08:35)
[2022-10-09] MEDS: MEMANTINE 5MG TABLET (NAMENDA) PO SCH ×2 (08:35→20:26)
[2022-10-09] MEDS: ENOXAPARIN 40MG/0.4ML SYRINGE (J1650 PER 10MG) SC SCH (08:36)
[2022-10-09] MEDS ORDERED: POTASSIUM CHLORIDE 10MEQ SR TABLET PO ONE (15:05)
[2022-10-10 06:00] VITALS: BP 137/72; TEMP 97.3; O2SAT 95
[2022-10-10 06:31] LABS: HEMOGLOBIN 12.5 g/dl (12.0-15.5); MEAN CORPUSCULAR HEMOGLOBIN 29.4 pg (27.0-33.0); MEAN CORPUSCULAR HGB CONC 32.1 g/dl (32.0-36.5); MEAN CORPUSCULAR VOLUME 91.8 fl (80.0-96.0); PLATELET COUNT, AUTOMATED 345 10^3/uL (150-450); RED BLOOD COUNT 4.25 10^6/uL (4.00-5.40); WHITE BLOOD COUNT 6.2 10^3/uL (4.0-10.0)
[2022-10-10 06:52] LABS: ALBUMIN 3.2 G/DL (3.2-5.2); ALKALINE PHOSPHATASE 112 U/L (46-116); ALT/SGPT 55 U/L (7.0-40); AST/SGOT 34 U/L (<34); BILIRUBIN,TOTAL 0.4 MG/DL (0.3-1.2); BLOOD UREA NITROGEN < 5 MG/DL (9-23); CALCIUM LEVEL 8.6 MG/DL (8.3-10.6); CARBON DIOXIDE LEVEL 25 MMOL/L (20-31); CHLORIDE LEVEL 108 MMOL/L (98-107); CREATININE FOR GFR 0.68 MG/DL (0.55-1.30); GLOMERULAR FILTRATION RATE > 60.0 (>45); GLUCOSE, FASTING 99 MG/DL (74-106); POTASSIUM SERUM 3.7 MMOL/L (3.5-5.1); SODIUM LEVEL 143 MMOL/L (136-145); TOTAL PROTEIN 5.9 G/DL (5.7-8.2)
[2022-10-10] MEDS: MEMANTINE 5MG TABLET (NAMENDA) PO SCH ×2 (08:15→20:20)
[2022-10-10] MEDS: PARoxetine 10MG TABLET PO SCH (08:15)
[2022-10-10] MEDS: DONEPEZIL 5 MG TAB PO SCH (08:15)
[2022-10-10] MEDS: ENOXAPARIN 40MG/0.4ML SYRINGE (J1650 PER 10MG) SC SCH (08:15)
[2022-10-10] MEDS: RAMELTEON 8 MG TAB (ROZEREM) PO PRN (20:20)
[2022-10-11 05:38] VITALS: BP 119/62; TEMP 97.2; O2SAT 93
[2022-10-11 05:57] LABS: HEMATOCRIT 37.8 % (36.0-47.0); HEMOGLOBIN 12.3 g/dl (12.0-15.5); MEAN CORPUSCULAR HEMOGLOBIN 29.9 pg (27.0-33.0); MEAN CORPUSCULAR HGB CONC 32.5 g/dl (32.0-36.5); MEAN CORPUSCULAR VOLUME 91.7 fl (80.0-96.0); PLATELET COUNT, AUTOMATED 335 10^3/uL (150-450); RED BLOOD COUNT 4.12 10^6/uL (4.00-5.40); WHITE BLOOD COUNT 6.3 10^3/uL (4.0-10.0)
[2022-10-11 06:22] LABS: ALBUMIN 3.1 G/DL (3.2-5.2); ALKALINE PHOSPHATASE 114 U/L (46-116); ALT/SGPT 46 U/L (7.0-40); AST/SGOT 28 U/L (<34); BILIRUBIN,TOTAL 0.4 MG/DL (0.3-1.2); BLOOD UREA NITROGEN < 5 MG/DL (9-23); CALCIUM LEVEL 8.6 MG/DL (8.3-10.6); CARBON DIOXIDE LEVEL 26 MMOL/L (20-31); CHLORIDE LEVEL 108 MMOL/L (98-107); CREATININE FOR GFR 0.65 MG/DL (0.55-1.30); GLOMERULAR FILTRATION RATE > 60.0 (>45); GLUCOSE, FASTING 98 MG/DL (74-106); POTASSIUM SERUM 3.7 MMOL/L (3.5-5.1); SODIUM LEVEL 143 MMOL/L (136-145)
[2022-10-11] MEDS: MEMANTINE 5MG TABLET (NAMENDA) PO SCH (08:02)
[2022-10-11] MEDS: DONEPEZIL 5 MG TAB PO SCH (08:02)
[2022-10-11] MEDS: ENOXAPARIN 40MG/0.4ML SYRINGE (J1650 PER 10MG) SC SCH (08:02)
[2022-10-11] MEDS: PARoxetine 10MG TABLET PO SCH (08:02)
== END 2022-10-11 14:09 | DRG 52 ==
LOC: M ED 08:30 → M ED INP 13:24 → M PCU 18:52 → M MSPAV 10-05 13:57
PROVIDERS: ADMIT Internal Medicine; ATTEND Internal Medicine Nephrology
DX: G93.41 Metabolic encephalopathy (principal); E87.20 Acidosis, unspecified; F02.80 Dementia in other diseases classified elsewhere, unspecified severity, without behavioral disturbance, psychotic disturbance, mood disturbance, and anxiety; G30.9 Alzheimer's disease, unspecified; F41.9 Anxiety disorder, unspecified; F32.A Depression, unspecified; Z87.891 Personal history of nicotine dependence; Z79.899 Other long term (current) drug therapy; N39.0 Urinary tract infection, site not specified; G40.909 Epilepsy, unspecified, not intractable, without status epilepticus

== ENCOUNTER → 2022-10-12 | Outpatient (REF) ==
[~2022-10-12] MED LIST changes: +ACET-840 PO; +ACET-897 PO; +MELA3TAB49 PO; +PAXI10TA13 PO
[2022-10-12 10:16] LABS: HEMATOCRIT 44.3 % (36.0-47.0); HEMOGLOBIN 14.2 g/dl (12.0-15.5); MEAN CORPUSCULAR HEMOGLOBIN 29.5 pg (27.0-33.0); MEAN CORPUSCULAR HGB CONC 32.1 g/dl (32.0-36.5); MEAN CORPUSCULAR VOLUME 91.9 fl (80.0-96.0); PLATELET COUNT, AUTOMATED 414 10^3/uL (150-450); RED BLOOD COUNT 4.82 10^6/uL (4.00-5.40); WHITE BLOOD COUNT 6.1 10^3/uL (4.0-10.0)
[2022-10-12 10:33] LABS: HEMOGLOBIN A1c 5.6 % (4.0-6.0)
[2022-10-12 10:48] LABS: TOTAL 25(OH) VITAMIN D 39.9 NG/ML (20.0-100.0); VITAMIN B12 LEVEL 1761 PG/ML (211-911)
[2022-10-12 10:49] LABS: ALBUMIN 3.7 G/DL (3.2-5.2); ALKALINE PHOSPHATASE 134 U/L (46-116); ALT/SGPT 50 U/L (7.0-40); AST/SGOT 30 U/L (<34); BILIRUBIN,DIRECT 0.1 MG/DL (<0.4); BILIRUBIN,TOTAL 0.4 MG/DL (0.3-1.2); BLOOD UREA NITROGEN 5 MG/DL (9-23); CALCIUM LEVEL 9.1 MG/DL (8.3-10.6); CARBON DIOXIDE LEVEL 25 MMOL/L (20-31); CHLORIDE LEVEL 107 MMOL/L (98-107); CREATININE FOR GFR 0.71 MG/DL (0.55-1.30); GLOMERULAR FILTRATION RATE > 60.0 (>45); GLUCOSE, FASTING 105 MG/DL (74-106); POTASSIUM SERUM 3.7 MMOL/L (3.5-5.1); SODIUM LEVEL 142 MMOL/L (136-145)
== END ==
PROVIDERS: ATTEND Physician Assistant
DX: Z79.899 Other long term (current) drug therapy (principal)

== ENCOUNTER → 2022-10-19 | Outpatient (REF) ==
[2022-10-19 08:35] LABS: HEMATOCRIT 43.7 % (36.0-47.0); HEMOGLOBIN 13.4 g/dl (12.0-15.5); MEAN CORPUSCULAR HEMOGLOBIN 28.9 pg (27.0-33.0); MEAN CORPUSCULAR HGB CONC 30.7 g/dl (32.0-36.5); MEAN CORPUSCULAR VOLUME 94.4 fl (80.0-96.0); PLATELET COUNT, AUTOMATED 377 10^3/uL (150-450); RED BLOOD COUNT 4.63 10^6/uL (4.00-5.40); WHITE BLOOD COUNT 4.9 10^3/uL (4.0-10.0)
[2022-10-19 08:56] LABS: BLOOD UREA NITROGEN 7 MG/DL (9-23); CALCIUM LEVEL 8.8 MG/DL (8.3-10.6); CARBON DIOXIDE LEVEL 25 MMOL/L (20-31); CHLORIDE LEVEL 109 MMOL/L (98-107); CREATININE FOR GFR 0.54 MG/DL (0.55-1.30); GLOMERULAR FILTRATION RATE > 60.0 (>45); GLUCOSE, FASTING 92 MG/DL (74-106); POTASSIUM SERUM 4.2 MMOL/L (3.5-5.1); SODIUM LEVEL 143 MMOL/L (136-145)
== END ==
PROVIDERS: ATTEND Physician Assistant
DX: Z79.899 Other long term (current) drug therapy (principal)

== ENCOUNTER → 2022-11-16 | Outpatient (REF) ==
[2022-11-16 08:28] LABS: HEMOGLOBIN 12.6 g/dl (12.0-15.5); MEAN CORPUSCULAR HEMOGLOBIN 28.8 pg (27.0-33.0); MEAN CORPUSCULAR HGB CONC 30.7 g/dl (32.0-36.5); MEAN CORPUSCULAR VOLUME 93.8 fl (80.0-96.0); PLATELET COUNT, AUTOMATED 382 10^3/uL (150-450); RED BLOOD COUNT 4.37 10^6/uL (4.00-5.40); WHITE BLOOD COUNT 5.4 10^3/uL (4.0-10.0)
[2022-11-16 08:49] LABS: BLOOD UREA NITROGEN 10 MG/DL (9-23); CALCIUM LEVEL 8.9 MG/DL (8.3-10.6); CARBON DIOXIDE LEVEL 27 MMOL/L (20-31); CHLORIDE LEVEL 107 MMOL/L (98-107); CREATININE FOR GFR 0.56 MG/DL (0.55-1.30); GLOMERULAR FILTRATION RATE > 60.0 (>45); GLUCOSE, FASTING 89 MG/DL (74-106); POTASSIUM SERUM 4.2 MMOL/L (3.5-5.1); SODIUM LEVEL 143 MMOL/L (136-145)
== END ==
PROVIDERS: ATTEND Internal Medicine
DX: Z79.899 Other long term (current) drug therapy (principal)

== ENCOUNTER → 2022-12-12 | Outpatient (REF) | payer MEDICAID ==
[2022-12-12 10:56] LABS: HEMATOCRIT 44.6 % (36.0-47.0); HEMOGLOBIN 13.9 g/dl (12.0-15.5); MEAN CORPUSCULAR HEMOGLOBIN 29.4 pg (27.0-33.0); MEAN CORPUSCULAR HGB CONC 31.2 g/dl (32.0-36.5); MEAN CORPUSCULAR VOLUME 94.3 fl (80.0-96.0); PLATELET COUNT, AUTOMATED 388 10^3/uL (150-450); RED BLOOD COUNT 4.73 10^6/uL (4.00-5.40); WHITE BLOOD COUNT 7.6 10^3/uL (4.0-10.0)
[2022-12-12 11:10] LABS: BLOOD UREA NITROGEN 7 MG/DL (9-23); CALCIUM LEVEL 9.1 MG/DL (8.3-10.6); CARBON DIOXIDE LEVEL 26 MMOL/L (20-31); CHLORIDE LEVEL 107 MMOL/L (98-107); CREATININE FOR GFR 0.64 MG/DL (0.55-1.30); GLOMERULAR FILTRATION RATE > 60.0 (>45); GLUCOSE, FASTING 96 MG/DL (74-106); POTASSIUM SERUM 4.7 MMOL/L (3.5-5.1); SODIUM LEVEL 142 MMOL/L (136-145)
== END ==
PROVIDERS: ATTEND Internal Medicine
DX: Z79.899 Other long term (current) drug therapy (principal)

== ENCOUNTER → 2023-01-04 | Outpatient (REF) | payer MEDICAID | PROVIDERS: ATTEND Physician Assistant | DX: R05.9 Cough, unspecified (principal) ==

== ENCOUNTER → 2023-01-10 | Outpatient (REF) | PROVIDERS: ATTEND Internal Medicine | DX: R05.9 Cough, unspecified (principal) ==

== ENCOUNTER 2023-01-19 09:24 | Observation (INO) | payer MEDICAID ==
[~2023-01-19] VITALS: Ht 170.2 cm; Wt 80.4 kg
[2023-01-19 09:55] LABS: VENOUS BASE EXCESS -3.6 (-2.0-2.0); VENOUS HCO3 23.5 MMOL/L (23.0-27.0); VENOUS O2 SATURATION 85.6 % (60.0-80.0); VENOUS PARTIAL PRESSURE CO2 49.9 mmHg (38.0-50.0); VENOUS PARTIAL PRESSURE O2 54.7 mmHg (30.0-50.0); VENOUS STANDARD HCO3 21.3 MMOL/L
[2023-01-19 09:57] LABS: BASO % 0.5 % (0.0-1.0); EOS # 0.1 10^3/uL (0.0-0.5); HEMATOCRIT 42.5 % (36.0-47.0); HEMOGLOBIN 13.2 g/dl (12.0-15.5); LYMPH # 1.7 10^3/uL (1.5-5.0); LYMPH % 23.8 % (24.0-44.0); MEAN CORPUSCULAR HEMOGLOBIN 29.9 pg (27.0-33.0); MEAN CORPUSCULAR HGB CONC 31.1 g/dl (32.0-36.5); MEAN CORPUSCULAR VOLUME 96.4 fl (80.0-96.0); MONO # 0.4 10^3/uL (0.0-0.8); MONO % 5.1 % (2.0-8.0); NEUTROPHILS % 68.4 % (36.0-66.0); PLATELET COUNT, AUTOMATED 392 10^3/uL (150-450); RED BLOOD COUNT 4.41 10^6/uL (4.00-5.40); WHITE BLOOD COUNT 7.3 10^3/uL (4.0-10.0)
[2023-01-19] MEDS ORDERED: DULC10SU2 PR (10:20)
[2023-01-19] MEDS ORDERED: FLEEENE12 PR ×2 (10:20→19:38)
[2023-01-19] MEDS ORDERED: MILKSUS3 PO ×2 (10:20→19:31)
[2023-01-19] MEDS ORDERED: DEPA250T32 PO ×2 (10:20→19:37)
[2023-01-19] MEDS ORDERED: OLAN2.5T25 PO ×2 (10:20→19:34)
[2023-01-19 10:25] LABS: CK-MB VALUE MASS < 1.0 NG/ML (<3.6)
[2023-01-19 10:28] LABS: ALBUMIN 3.4 G/DL (3.2-5.2); ALKALINE PHOSPHATASE 119 U/L (46-116); ALT/SGPT 21 U/L (7.0-40); AST/SGOT 23 U/L (<34); BILIRUBIN,DIRECT < 0.1 MG/DL (<0.4); BILIRUBIN,TOTAL 0.3 MG/DL (0.3-1.2); BLOOD UREA NITROGEN 13 MG/DL (9-23); CARBON DIOXIDE LEVEL 25 MMOL/L (20-31); CHLORIDE LEVEL 106 MMOL/L (98-107); CPK CREATINE PHOSPHOKINASE 50 U/L (34-145); CREATININE FOR GFR 0.59 MG/DL (0.55-1.30); GLOMERULAR FILTRATION RATE > 60.0 (>45); GLUCOSE, FASTING 172 MG/DL (74-106); POTASSIUM SERUM 4.2 MMOL/L (3.5-5.1); SODIUM LEVEL 143 MMOL/L (136-145); TOTAL PROTEIN 6.9 G/DL (5.7-8.2)
[2023-01-19 10:29] LABS: THYROID STIMULATING HORMONE 2.696 uIU/ML (0.55-4.78)
[2023-01-19 10:31] LABS: OSMOLALITY SERUM 307 MOSM/KG (280-301)
[2023-01-19] MEDS ORDERED: MED REC IN PROGRESS XX SCH (13:10)
[2023-01-19 15:11] LABS: PROLACTIN 48.88 NG/ML
[2023-01-19] MEDS ORDERED: MELA3TAB30 PO (19:32)
[2023-01-19] MEDS ORDERED: PARO5TAB PO (19:36)
[2023-01-19] MEDS ORDERED: VITA200012 PO (19:43)
[2023-01-19 20:00] VITALS: BP 120/62; TEMP 97.9; O2SAT 93
[2023-01-19] MEDS ORDERED: HOME MED LIST COMPLETE! XX SCH (21:40)
[2023-01-19] MEDS: DIVALPROEX 500 MG TAB PO SCH (22:12)
[2023-01-20 06:00] VITALS: BP 104/49; TEMP 97.9; O2SAT 94
[2023-01-20] MEDS ORDERED: DEPA1TAB3 PO (08:59)
[2023-01-20] MEDS ORDERED: MEMANTINE 5MG TABLET (NAMENDA) PO SCH (09:00)
[2023-01-20] MEDS ORDERED: PARoxetine 10MG TABLET PO SCH (09:00)
[2023-01-20] MEDS ORDERED: DONEPEZIL 5 MG TAB PO SCH (09:00)
[2023-01-20] MEDS: DIVALPROEX 500 MG TAB PO SCH (09:17)
[2023-01-20] MEDS ORDERED: OLANZapine 2.5MG TABLET PO SCH (21:00)
== END 2023-01-20 12:40 ==
LOC: EDBD 09:24 → M ED 09:24 → M ED INP 09:25 → ENRESERV 14:52 → M MSPAV 15:56
PROVIDERS: ADMIT Internal Medicine Nephrology; ATTEND Internal Medicine Nephrology
DX: G40.89 Other seizures (principal); G30.0 Alzheimer's disease with early onset; E44.1 Mild protein-calorie malnutrition; D51.0 Vitamin B12 deficiency anemia due to intrinsic factor deficiency; R55 Syncope and collapse; G93.41 Metabolic encephalopathy; Z79.899 Other long term (current) drug therapy

== ENCOUNTER → 2023-01-20 | Outpatient (REF) | payer MEDICAID ==
[~2023-01-20] MED LIST changes: +DEPA1TAB3 PO; +DEPA250T32 PO; +DULC10SU2 PR; +FLEEENE12 PR; +MELA3TAB30 PO; +MILKSUS3 PO; +OLAN2.5T25 PO; +PARO5TAB PO; +VITA200012 PO
== END ==
PROVIDERS: ATTEND Physician Assistant
DX: R05.9 Cough, unspecified (principal); Z53.8 Procedure and treatment not carried out for other reasons

== ENCOUNTER → 2023-01-23 | Outpatient (REF) | payer MEDICAID ==
[2023-01-23 10:50] LABS: HEMATOCRIT 42.3 % (36.0-47.0); MEAN CORPUSCULAR HEMOGLOBIN 29.5 pg (27.0-33.0); MEAN CORPUSCULAR HGB CONC 30.7 g/dl (32.0-36.5); MEAN CORPUSCULAR VOLUME 95.9 fl (80.0-96.0); PLATELET COUNT, AUTOMATED 330 10^3/uL (150-450); RED BLOOD COUNT 4.41 10^6/uL (4.00-5.40); WHITE BLOOD COUNT 6.1 10^3/uL (4.0-10.0)
[2023-01-23 11:06] LABS: HEMOGLOBIN A1c 5.1 % (4.0-6.0)
[2023-01-23 11:14] LABS: ALBUMIN 3.4 G/DL (3.2-5.2); ALKALINE PHOSPHATASE 109 U/L (46-116); ALT/SGPT 18 U/L (7.0-40); AST/SGOT 19 U/L (<34); BILIRUBIN,DIRECT < 0.1 MG/DL (<0.4); BILIRUBIN,TOTAL 0.3 MG/DL (0.3-1.2); BLOOD UREA NITROGEN 9 MG/DL (9-23); CALCIUM LEVEL 9.3 MG/DL (8.3-10.6); CARBON DIOXIDE LEVEL 28 MMOL/L (20-31); CHLORIDE LEVEL 105 MMOL/L (98-107); CREATININE FOR GFR 0.59 MG/DL (0.55-1.30); GLOMERULAR FILTRATION RATE > 60.0 (>45); GLUCOSE, FASTING 146 MG/DL (74-106); SODIUM LEVEL 145 MMOL/L (136-145); TOTAL PROTEIN 6.8 G/DL (5.7-8.2)
[2023-01-23 11:15] LABS: TOTAL 25(OH) VITAMIN D 40.7 NG/ML (20.0-100.0)
[2023-01-23 11:16] LABS: THYROID STIMULATING HORMONE 1.145 uIU/ML (0.55-4.78); VITAMIN B12 LEVEL 453 PG/ML (211-911)
== END ==
PROVIDERS: ATTEND Internal Medicine
DX: N18.9 Chronic kidney disease, unspecified (principal)

== ENCOUNTER → 2023-01-30 | Outpatient (REF) ==
[2023-01-30 11:34] LABS: HEMATOCRIT 40.2 % (36.0-47.0); HEMOGLOBIN 12.5 g/dl (12.0-15.5); MEAN CORPUSCULAR HEMOGLOBIN 30.1 pg (27.0-33.0); MEAN CORPUSCULAR HGB CONC 31.1 g/dl (32.0-36.5); MEAN CORPUSCULAR VOLUME 96.9 fl (80.0-96.0); PLATELET COUNT, AUTOMATED 319 10^3/uL (150-450); RED BLOOD COUNT 4.15 10^6/uL (4.00-5.40); WHITE BLOOD COUNT 7.2 10^3/uL (4.0-10.0)
[2023-01-30 11:51] LABS: BLOOD UREA NITROGEN 11 MG/DL (9-23); CALCIUM LEVEL 8.4 MG/DL (8.3-10.6); CARBON DIOXIDE LEVEL 29 MMOL/L (20-31); CHLORIDE LEVEL 106 MMOL/L (98-107); CREATININE FOR GFR 0.63 MG/DL (0.55-1.30); GLOMERULAR FILTRATION RATE > 60.0 (>45); GLUCOSE, FASTING 128 MG/DL (74-106); POTASSIUM SERUM 4.1 MMOL/L (3.5-5.1); SODIUM LEVEL 144 MMOL/L (136-145)
== END ==
PROVIDERS: ATTEND Internal Medicine
DX: I50.9 Heart failure, unspecified (principal)

== ENCOUNTER → 2023-03-13 | Outpatient (REF) | payer MEDICAID ==
[2023-03-13 11:15] LABS: HEMATOCRIT 44.6 % (36.0-47.0); HEMOGLOBIN 13.8 g/dl (12.0-15.5); MEAN CORPUSCULAR HEMOGLOBIN 30.1 pg (27.0-33.0); MEAN CORPUSCULAR HGB CONC 30.9 g/dl (32.0-36.5); MEAN CORPUSCULAR VOLUME 97.2 fl (80.0-96.0); PLATELET COUNT, AUTOMATED 251 10^3/uL (150-450); RED BLOOD COUNT 4.59 10^6/uL (4.00-5.40); WHITE BLOOD COUNT 6.9 10^3/uL (4.0-10.0)
[2023-03-13 11:28] LABS: BLOOD UREA NITROGEN 12 MG/DL (9-23); CALCIUM LEVEL 9.4 MG/DL (8.3-10.6); CARBON DIOXIDE LEVEL 28 MMOL/L (20-31); CHLORIDE LEVEL 108 MMOL/L (98-107); CREATININE FOR GFR 0.74 MG/DL (0.55-1.30); GLOMERULAR FILTRATION RATE > 60.0 (>45); GLUCOSE, FASTING 93 MG/DL (74-106); POTASSIUM SERUM 4.1 MMOL/L (3.5-5.1); SODIUM LEVEL 146 MMOL/L (136-145)
== END ==
PROVIDERS: ATTEND Internal Medicine
DX: Z79.899 Other long term (current) drug therapy (principal)

== ENCOUNTER → 2023-03-24 | Outpatient (REF) | payer MEDICAID ==
[~2023-03-24] MED LIST changes: +CEFD1CAP9 PO; +DIVA250T7 PO
== END ==
PROVIDERS: ATTEND Internal Medicine
DX: Z53.8 Procedure and treatment not carried out for other reasons (principal)

== ENCOUNTER 2023-04-12 12:06 | Emergency (ER) | payer MEDICARE, MEDICAID ==
[~2023-04-12] VITALS: Ht 167.6 cm; Wt 80.2 kg
[~2023-04-12 12:06] MED LIST changes: -CEFD1CAP9 PO; -DIVA250T7 PO
[2023-04-12 12:45] LABS: BASO % 0.5 % (0.0-1.0); EOS # 0.1 10^3/uL (0.0-0.5); EOS % 1.6 % (0.0-3.0); HEMATOCRIT 48.8 % (36.0-47.0); HEMOGLOBIN 15.1 g/dl (12.0-15.5); LYMPH # 1.5 10^3/uL (1.5-5.0); LYMPH % 22.9 % (24.0-44.0); MEAN CORPUSCULAR HEMOGLOBIN 30.2 pg (27.0-33.0); MEAN CORPUSCULAR HGB CONC 30.9 g/dl (32.0-36.5); MEAN CORPUSCULAR VOLUME 97.6 fl (80.0-96.0); MONO # 0.7 10^3/uL (0.0-0.8); MONO % 10.4 % (2.0-8.0); NEUTROPHILS # 4.2 10^3/uL (1.5-8.5); NEUTROPHILS % 64.3 % (36.0-66.0); PLATELET COUNT, AUTOMATED 254 10^3/uL (150-450); WHITE BLOOD COUNT 6.5 10^3/uL (4.0-10.0)
[2023-04-12 13:02] LABS: ALBUMIN 3.5 G/DL (3.2-5.2); ALKALINE PHOSPHATASE 105 U/L (46-116); ALT/SGPT 57 U/L (7.0-40); AST/SGOT 48 U/L (<34); BILIRUBIN,DIRECT 0.1 MG/DL (<0.4); BILIRUBIN,TOTAL 0.4 MG/DL (0.3-1.2); BLOOD UREA NITROGEN 10 MG/DL (9-23); CALCIUM LEVEL 9.1 MG/DL (8.3-10.6); CARBON DIOXIDE LEVEL 31 MMOL/L (20-31); CHLORIDE LEVEL 110 MMOL/L (98-107); CREATININE FOR GFR 0.74 MG/DL (0.55-1.30); GLOMERULAR FILTRATION RATE > 60.0 (>45); GLUCOSE, FASTING 84 MG/DL (74-106); POTASSIUM SERUM 3.9 MMOL/L (3.5-5.1); SODIUM LEVEL 146 MMOL/L (136-145); TOTAL PROTEIN 7.4 G/DL (5.7-8.2)
[2023-04-12 13:05] LABS: THYROID STIMULATING HORMONE 3.242 uIU/ML (0.55-4.78)
[2023-04-12] MEDS ORDERED: MED REC IN PROGRESS XX SCH (14:10)
[2023-04-12] MEDS ORDERED: CEFD1CAP9 PO (14:25)
[2023-04-12] MEDS ORDERED: cefTRIAXone SOD 1 GM in D5W MINI-BAG PLUS 50 ML IV ONE (14:25)
[2023-04-12] MEDS ORDERED: DIVA250T7 PO (14:25)
[2023-04-12 14:45] VITALS: BP 123/57; TEMP 97.6; O2SAT 97
== END 2023-04-12 15:20 | disposition home or self-care (01) ==
LOC: EDBD 12:06 → M ED 12:06
DX: N39.0 Urinary tract infection, site not specified (principal); G40.909 Epilepsy, unspecified, not intractable, without status epilepticus; Z79.1 Long term (current) use of non-steroidal anti-inflammatories (NSAID); Z79.2 Long term (current) use of antibiotics; Z79.899 Other long term (current) drug therapy
CPT/HCPCS: 70450; 71045; 80048; 80076; 80164; 81001; 82140; 83605; 84443; 85025; 87040; 87088; 87186; 87486; 87581; 87633; 87798; 93005; 93041; 94760; 96374; 99285; J0696

== ENCOUNTER → 2023-04-17 | Outpatient (REF) | payer MEDICARE, MEDICAID ==
[~2023-04-17] MED LIST changes: +CEFD1CAP9 PO; +DIVA250T7 PO
[2023-04-17 12:14] LABS: HEMOGLOBIN A1c 5.5 % (4.0-6.0)
[2023-04-17 12:26] LABS: THYROID STIMULATING HORMONE 2.391 uIU/ML (0.55-4.78); VITAMIN B12 LEVEL 945 PG/ML (211-911)
[2023-04-17 12:28] LABS: ALKALINE PHOSPHATASE 94 U/L (46-116); ALT/SGPT 35 U/L (7.0-40); AST/SGOT 31 U/L (<34); BILIRUBIN,DIRECT < 0.1 MG/DL (<0.4); BILIRUBIN,TOTAL 0.2 MG/DL (0.3-1.2); TOTAL PROTEIN 6.5 G/DL (5.7-8.2)
== END ==
PROVIDERS: ATTEND Internal Medicine
DX: R56.9 Unspecified convulsions (principal); Z79.899 Other long term (current) drug therapy

== ENCOUNTER 2023-04-27 02:30 | Emergency (ER) | payer MEDICARE, MEDICAID ==
[2023-04-27 02:53] LABS: IONIZED CALCIUM 4.7 MG/DL (4.5-5.3)
[2023-04-27 02:55] LABS: VENOUS BASE EXCESS -0.5 (-2.0-2.0); VENOUS HCO3 26.8 MMOL/L (23.0-27.0); VENOUS O2 SATURATION 70.2 % (60.0-80.0); VENOUS PARTIAL PRESSURE CO2 54.9 mmHg (38.0-50.0); VENOUS PARTIAL PRESSURE O2 39.3 mmHg (30.0-50.0); VENOUS PH 7.306 UNITS (7.330-7.430); VENOUS STANDARD HCO3 23.4 MMOL/L; VENOUS TOTAL CO2 28.5 MMOL/L (24.0-28.0)
[2023-04-27 03:00] LABS: BASO % 0.6 % (0.0-1.0); EOS # 0.3 10^3/uL (0.0-0.5); HEMATOCRIT 41.3 % (36.0-47.0); LYMPH % 41.7 % (24.0-44.0); MEAN CORPUSCULAR HEMOGLOBIN 31.6 pg (27.0-33.0); MEAN CORPUSCULAR HGB CONC 31.5 g/dl (32.0-36.5); MEAN CORPUSCULAR VOLUME 100.5 fl (80.0-96.0); MONO # 0.8 10^3/uL (0.0-0.8); MONO % 11.1 % (2.0-8.0); NEUTROPHILS # 3.1 10^3/uL (1.5-8.5); NEUTROPHILS % 42.5 % (36.0-66.0); PLATELET COUNT, AUTOMATED 286 10^3/uL (150-450); RED BLOOD COUNT 4.11 10^6/uL (4.00-5.40); WHITE BLOOD COUNT 7.2 10^3/uL (4.0-10.0)
[2023-04-27 03:14] LABS: VALPROIC ACID (DEPAKOTE) 55.6 UG/ML (50.0-100.0)
[2023-04-27 03:15] LABS: ALBUMIN 3.1 G/DL (3.2-5.2); ALKALINE PHOSPHATASE 101 U/L (46-116); ALT/SGPT 27 U/L (7.0-40); AST/SGOT 24 U/L (<34); BILIRUBIN,DIRECT < 0.1 MG/DL (<0.4); BILIRUBIN,TOTAL 0.3 MG/DL (0.3-1.2); BLOOD UREA NITROGEN 12 MG/DL (9-23); CALCIUM LEVEL 8.7 MG/DL (8.3-10.6); CARBON DIOXIDE LEVEL 28 MMOL/L (20-31); CHLORIDE LEVEL 109 MMOL/L (98-107); CREATININE FOR GFR 0.66 MG/DL (0.55-1.30); GLOMERULAR FILTRATION RATE > 60.0 (>45); GLUCOSE, FASTING 96 MG/DL (74-106); MAGNESIUM LEVEL 2.1 MG/DL (1.8-2.4); PHOSPHORUS LEVEL 3.6 MG/DL (2.4-5.1); SODIUM LEVEL 144 MMOL/L (136-145); TOTAL PROTEIN 6.6 G/DL (5.7-8.2)
[2023-04-27] MEDS ORDERED: NS 1,000 ML IV ONE (04:50)
[2023-04-27 10:40] VITALS: BP 126/61; TEMP 97.9; O2SAT 94
== END 2023-04-27 10:45 | disposition home or self-care (01) ==
LOC: EDBD 02:30 → M ED 04:32
DX: G40.909 Epilepsy, unspecified, not intractable, without status epilepticus (principal); F32.A Depression, unspecified; F41.1 Generalized anxiety disorder; I45.10 Unspecified right bundle-branch block; Z79.899 Other long term (current) drug therapy; Z79.1 Long term (current) use of non-steroidal anti-inflammatories (NSAID); Z79.2 Long term (current) use of antibiotics

== ENCOUNTER 2023-05-05 09:09 | Emergency (ER) | payer MEDICARE, MEDICAID ==
[~2023-05-05 09:09] MED LIST changes: -ZONI100C67 PO; -ZONI25CA13 PO
[2023-05-05 09:41] LABS: BASO % 0.6 % (0.0-1.0); EOS # 0.3 10^3/uL (0.0-0.5); EOS % 4.1 % (0.0-3.0); HEMATOCRIT 42.5 % (36.0-47.0); HEMOGLOBIN 13.5 g/dl (12.0-15.5); LYMPH # 3.2 10^3/uL (1.5-5.0); LYMPH % 47.4 % (24.0-44.0); MEAN CORPUSCULAR HEMOGLOBIN 31.9 pg (27.0-33.0); MEAN CORPUSCULAR HGB CONC 31.8 g/dl (32.0-36.5); MEAN CORPUSCULAR VOLUME 100.5 fl (80.0-96.0); MONO # 0.7 10^3/uL (0.0-0.8); MONO % 10.1 % (2.0-8.0); NEUTROPHILS # 2.5 10^3/uL (1.5-8.5); NEUTROPHILS % 37.5 % (36.0-66.0); PLATELET COUNT, AUTOMATED 259 10^3/uL (150-450); RED BLOOD COUNT 4.23 10^6/uL (4.00-5.40); WHITE BLOOD COUNT 6.8 10^3/uL (4.0-10.0)
[2023-05-05 10:03] LABS: VALPROIC ACID (DEPAKOTE) 74.5 UG/ML (50.0-100.0)
[2023-05-05 10:06] LABS: ALBUMIN 3.2 G/DL (3.2-5.2); ALKALINE PHOSPHATASE 92 U/L (46-116); ALT/SGPT 18 U/L (7.0-40); AST/SGOT 28 U/L (<34); BILIRUBIN,DIRECT < 0.1 MG/DL (<0.4); BILIRUBIN,TOTAL 0.4 MG/DL (0.3-1.2); BLOOD UREA NITROGEN 11 MG/DL (9-23); CALCIUM LEVEL 9.1 MG/DL (8.3-10.6); CARBON DIOXIDE LEVEL 26 MMOL/L (20-31); CHLORIDE LEVEL 107 MMOL/L (98-107); CREATININE FOR GFR 0.65 MG/DL (0.55-1.30); GLOMERULAR FILTRATION RATE > 60.0 (>45); GLUCOSE, FASTING 87 MG/DL (74-106); POTASSIUM SERUM 4.2 MMOL/L (3.5-5.1); SODIUM LEVEL 142 MMOL/L (136-145); TOTAL PROTEIN 6.8 G/DL (5.7-8.2)
[2023-05-05 10:22] LABS: RSV AMPLIFICATION NEGATIVE (NEGATIVE)
[2023-05-05] MEDS ORDERED: ZONI100C67 PO (10:54)
[2023-05-05] MEDS ORDERED: ZONI25CA13 PO (10:54)
[2023-05-05] MEDS: ZONISAMIDE 50 MG CAP (ZONEGRAN) PO STA (11:09)
[2023-05-05 11:14] VITALS: BP 126/60; O2SAT 94
[2023-05-05 11:15] VITALS: TEMP 97.8
== END 2023-05-05 11:59 | disposition home or self-care (01) ==
LOC: M ED 09:09
DX: G40.909 Epilepsy, unspecified, not intractable, without status epilepticus (principal); F03.90 Unspecified dementia, unspecified severity, without behavioral disturbance, psychotic disturbance, mood disturbance, and anxiety; F41.9 Anxiety disorder, unspecified; F32.A Depression, unspecified; Z87.891 Personal history of nicotine dependence; Z79.1 Long term (current) use of non-steroidal anti-inflammatories (NSAID); Z79.2 Long term (current) use of antibiotics; Z79.899 Other long term (current) drug therapy

== ENCOUNTER → 2023-05-05 | Outpatient (REF) | payer MEDICARE, MEDICAID ==
[~2023-05-05] MED LIST changes: +ZONI100C67 PO; +ZONI25CA13 PO
== END ==
PROVIDERS: ATTEND Physician Assistant
DX: G40.909 Epilepsy, unspecified, not intractable, without status epilepticus (principal); Z53.8 Procedure and treatment not carried out for other reasons

== ENCOUNTER → 2023-05-10 | Outpatient (REF) | payer MEDICARE, MEDICAID ==
[~2023-05-10] MED LIST changes: +ZONI100C67 PO; +ZONI25CA13 PO
== END ==
PROVIDERS: ATTEND Physician Assistant
DX: G40.909 Epilepsy, unspecified, not intractable, without status epilepticus (principal)

== ENCOUNTER → 2023-06-14 | Outpatient (REF) | payer MEDICARE, MEDICAID ==
[2023-06-14 11:56] LABS: HEMATOCRIT 41.4 % (36.0-47.0); HEMOGLOBIN 13.3 g/dl (12.0-15.5); MEAN CORPUSCULAR HEMOGLOBIN 32.3 pg (27.0-33.0); MEAN CORPUSCULAR HGB CONC 32.1 g/dl (32.0-36.5); MEAN CORPUSCULAR VOLUME 100.5 fl (80.0-96.0); PLATELET COUNT, AUTOMATED 224 10^3/uL (150-450); RED BLOOD COUNT 4.12 10^6/uL (4.00-5.40); WHITE BLOOD COUNT 4.9 10^3/uL (4.0-10.0)
[2023-06-14 12:57] LABS: BLOOD UREA NITROGEN 13 MG/DL (9-23); CARBON DIOXIDE LEVEL 26 MMOL/L (20-31); CHLORIDE LEVEL 113 MMOL/L (98-107); CREATININE FOR GFR 0.67 MG/DL (0.55-1.30); GLOMERULAR FILTRATION RATE > 60.0 (>45); GLUCOSE, FASTING 80 MG/DL (74-106); POTASSIUM SERUM 3.9 MMOL/L (3.5-5.1); SODIUM LEVEL 146 MMOL/L (136-145); VALPROIC ACID (DEPAKOTE) 79.5 UG/ML (50.0-100.0)
== END ==
PROVIDERS: ATTEND Internal Medicine
DX: G40.909 Epilepsy, unspecified, not intractable, without status epilepticus (principal)

== ENCOUNTER → 2023-07-10 | Outpatient (REF) | payer MEDICARE, MEDICAID ==
[~2023-07-10] MED LIST changes: +MEMA10TA PO; -MEMA10TA19 PO
== END ==
PROVIDERS: ATTEND Internal Medicine
DX: G40.909 Epilepsy, unspecified, not intractable, without status epilepticus (principal)

== ENCOUNTER → 2023-07-14 | Outpatient (REF) | payer MEDICARE, MEDICAID ==
[2023-07-14 09:52] LABS: BASO % 0.6 % (0.0-1.0); EOS # 0.1 10^3/uL (0.0-0.5); EOS % 1.7 % (0.0-3.0); HEMATOCRIT 43.9 % (36.0-47.0); HEMOGLOBIN 14.3 g/dl (12.0-15.5); LYMPH # 2.3 10^3/uL (1.5-5.0); LYMPH % 32.7 % (24.0-44.0); MEAN CORPUSCULAR HEMOGLOBIN 32.5 pg (27.0-33.0); MEAN CORPUSCULAR HGB CONC 32.6 g/dl (32.0-36.5); MEAN CORPUSCULAR VOLUME 99.8 fl (80.0-96.0); MONO # 0.8 10^3/uL (0.0-0.8); MONO % 11.1 % (2.0-8.0); NEUTROPHILS # 3.8 10^3/uL (1.5-8.5); NEUTROPHILS % 53.6 % (36.0-66.0); PLATELET COUNT, AUTOMATED 270 10^3/uL (150-450)
[2023-07-14 10:38] LABS: VALPROIC ACID (DEPAKOTE) 29.5 UG/ML (50.0-100.0)
[2023-07-14 10:39] LABS: ALBUMIN 3.5 G/DL (3.2-5.2); ALKALINE PHOSPHATASE 79 U/L (46-116); ALT/SGPT 13 U/L (7.0-40); AST/SGOT 19 U/L (<34); BILIRUBIN,TOTAL 0.3 MG/DL (0.3-1.2); BLOOD UREA NITROGEN 10 MG/DL (9-23); CALCIUM LEVEL 9.6 MG/DL (8.3-10.6); CARBON DIOXIDE LEVEL 26 MMOL/L (20-31); CHLORIDE LEVEL 110 MMOL/L (98-107); CREATININE FOR GFR 0.74 MG/DL (0.55-1.30); GLOMERULAR FILTRATION RATE > 60.0 (>45); GLUCOSE, FASTING 84 MG/DL (74-106); POTASSIUM SERUM 3.7 MMOL/L (3.5-5.1); SODIUM LEVEL 144 MMOL/L (136-145); TOTAL PROTEIN 6.8 G/DL (5.7-8.2)
[2023-07-14 10:53] LABS: THYROID STIMULATING HORMONE 1.723 uIU/ML (0.55-4.78)
== END ==
PROVIDERS: ATTEND Physician Assistant
DX: R05.9 Cough, unspecified (principal); Z79.899 Other long term (current) drug therapy

== ENCOUNTER → 2023-07-26 | Outpatient (REF) | payer MEDICARE, MEDICAID ==
[~2023-07-26] MED LIST changes: +DIVA125C6 PO; +MEGE400O12 PO; +SERT50TA29 PO; +VITA1CAP25 PO; +ZONI50CA11 PO
== END ==
PROVIDERS: ATTEND Internal Medicine
DX: G40.909 Epilepsy, unspecified, not intractable, without status epilepticus (principal)

== ENCOUNTER 2023-07-30 07:57 | Emergency (ER) | payer MEDICARE, MEDICAID ==
[~2023-07-30 07:57] MED LIST changes: -DIVA125C6 PO; -MEGE400O12 PO; -SERT50TA29 PO; -VITA1CAP25 PO; -ZONI50CA11 PO
[2023-07-30 08:31] LABS: BASO % 0.3 % (0.0-1.0); EOS # 0.1 10^3/uL (0.0-0.5); EOS % 1.6 % (0.0-3.0); HEMATOCRIT 40.2 % (36.0-47.0); HEMOGLOBIN 12.9 g/dl (12.0-15.5); LYMPH # 2.8 10^3/uL (1.5-5.0); LYMPH % 44.5 % (24.0-44.0); MEAN CORPUSCULAR HEMOGLOBIN 32.2 pg (27.0-33.0); MEAN CORPUSCULAR HGB CONC 32.1 g/dl (32.0-36.5); MEAN CORPUSCULAR VOLUME 100.2 fl (80.0-96.0); MONO # 0.4 10^3/uL (0.0-0.8); NEUTROPHILS # 2.9 10^3/uL (1.5-8.5); NEUTROPHILS % 47.3 % (36.0-66.0); PLATELET COUNT, AUTOMATED 242 10^3/uL (150-450); RED BLOOD COUNT 4.01 10^6/uL (4.00-5.40); WHITE BLOOD COUNT 6.2 10^3/uL (4.0-10.0)
[2023-07-30] MEDS ORDERED: DIVALPROEX SPRINKLE 125 MG CAP PO ONE (08:50)
[2023-07-30] MEDS ORDERED: ZONISAMIDE 100 MG CAP (ZONEGRAN) PO ONE (08:50)
[2023-07-30 08:51] VITALS: TEMP 97.1
[2023-07-30 09:02] LABS: ALBUMIN 3.3 G/DL (3.2-5.2); ALKALINE PHOSPHATASE 52 U/L (46-116); ALT/SGPT 14 U/L (7.0-40); AST/SGOT 34 U/L (<34); BILIRUBIN,DIRECT < 0.1 MG/DL (<0.4); BILIRUBIN,TOTAL 0.4 MG/DL (0.3-1.2); BLOOD UREA NITROGEN 10 MG/DL (9-23); CALCIUM LEVEL 8.9 MG/DL (8.3-10.6); CARBON DIOXIDE LEVEL 21 MMOL/L (20-31); CHLORIDE LEVEL 109 MMOL/L (98-107); CREATININE FOR GFR 0.62 MG/DL (0.55-1.30); GLOMERULAR FILTRATION RATE > 60.0 (>45); GLUCOSE, FASTING 103 MG/DL (74-106); MAGNESIUM LEVEL 2.3 MG/DL (1.8-2.4); PHOSPHORUS LEVEL 3.2 MG/DL (2.4-5.1); POTASSIUM SERUM 4.8 MMOL/L (3.5-5.1); SODIUM LEVEL 142 MMOL/L (136-145); TOTAL PROTEIN 6.3 G/DL (5.7-8.2)
[2023-07-30] MEDS: DIVALPROEX SPRINKLE 125 MG CAP PO ONE (09:20)
[2023-07-30] MEDS ORDERED: VITA1CAP25 PO (10:28)
[2023-07-30] MEDS ORDERED: DIVA125C6 PO ×2 (10:28)
[2023-07-30] MEDS ORDERED: MEGE400O12 PO (10:28)
[2023-07-30] MEDS ORDERED: SERT50TA29 PO (10:28)
[2023-07-30] MEDS ORDERED: ZONI50CA11 PO (10:28)
[2023-07-30] MEDS ORDERED: HOME MED LIST COMPLETE! XX SCH (10:30)
[2023-07-30 10:45] VITALS: BP 145/62
[2023-07-30] MEDS ORDERED: DEPA1TAB3 PO (10:46)
[2023-07-30] MEDS ORDERED: ZONI100C67 PO (10:46)
[2023-07-30 11:00] VITALS: O2SAT 97
== END 2023-07-30 11:16 | disposition home or self-care (01) ==
LOC: M ED 07:57
DX: G40.909 Epilepsy, unspecified, not intractable, without status epilepticus (principal); Z79.899 Other long term (current) drug therapy

== ENCOUNTER → 2023-08-01 | Outpatient (CLI) | payer MEDICARE, MEDICAID ==
[~2023-08-01] MED LIST changes: +DIVA125C6 PO; +GASTROGRAFIN SOLUTION 30ML As Ordered ONE; +MEGE400O12 PO; +SERT50TA29 PO; +VITA1CAP25 PO; +ZONI50CA11 PO
== END ==
LOC: M RAD 08:47
PROVIDERS: ATTEND Physician Assistant
DX: R06.02 Shortness of breath (principal); R05.3 Chronic cough; R63.4 Abnormal weight loss; M47.817 Spondylosis without myelopathy or radiculopathy, lumbosacral region; M43.17 Spondylolisthesis, lumbosacral region; I25.10 Atherosclerotic heart disease of native coronary artery without angina pectoris; I70.0 Atherosclerosis of aorta; R91.8 Other nonspecific abnormal finding of lung field
CPT/HCPCS: 71250; 74176; Q9963

== ENCOUNTER → 2023-08-09 | Outpatient (REF) | payer MEDICARE, MEDICAID ==
[~2023-08-09] MED LIST changes: -GASTROGRAFIN SOLUTION 30ML As Ordered ONE
== END ==
PROVIDERS: ATTEND Internal Medicine
DX: R09.89 Other specified symptoms and signs involving the circulatory and respiratory systems (principal)

== ENCOUNTER → 2023-08-09 | Outpatient (REF) | payer MEDICARE, MEDICAID ==
[~2023-08-09] MED LIST changes: +DEPA1CAP PO
== END ==
PROVIDERS: ATTEND Family Medicine
DX: R10.9 Unspecified abdominal pain (principal); Z53.8 Procedure and treatment not carried out for other reasons

== ENCOUNTER 2023-08-10 11:59 | Emergency (ER) | payer MEDICARE, MEDICAID ==
[~2023-08-10] VITALS: Ht 167.6 cm; Wt 64.0 kg
[2023-08-10 13:33] LABS: BASO % 0.4 % (0.0-1.0); EOS % 0.2 % (0.0-3.0); HEMATOCRIT 46.9 % (36.0-47.0); HEMOGLOBIN 15.1 g/dl (12.0-15.5); LYMPH # 2.1 10^3/uL (1.5-5.0); LYMPH % 21.6 % (24.0-44.0); MEAN CORPUSCULAR HGB CONC 32.2 g/dl (32.0-36.5); MEAN CORPUSCULAR VOLUME 99.4 fl (80.0-96.0); MONO # 0.9 10^3/uL (0.0-0.8); MONO % 9.8 % (2.0-8.0); NEUTROPHILS # 6.4 10^3/uL (1.5-8.5); NEUTROPHILS % 67.7 % (36.0-66.0); PLATELET COUNT, AUTOMATED 210 10^3/uL (150-450); RED BLOOD COUNT 4.72 10^6/uL (4.00-5.40); WHITE BLOOD COUNT 9.5 10^3/uL (4.0-10.0)
[2023-08-10 15:07] LABS: CK-MB VALUE MASS < 1.0 NG/ML (<3.6)
[2023-08-10 15:08] LABS: VALPROIC ACID (DEPAKOTE) 67.2 UG/ML (50.0-100.0)
[2023-08-10 15:10] LABS: ALBUMIN 3.6 G/DL (3.2-5.2); ALKALINE PHOSPHATASE 71 U/L (46-116); ALT/SGPT 16 U/L (7.0-40); AST/SGOT 21 U/L (<34); BILIRUBIN,DIRECT 0.1 MG/DL (<0.4); BILIRUBIN,TOTAL 0.4 MG/DL (0.3-1.2); BLOOD UREA NITROGEN 17 MG/DL (9-23); CALCIUM LEVEL 9.5 MG/DL (8.3-10.6); CARBON DIOXIDE LEVEL 24 MMOL/L (20-31); CHLORIDE LEVEL 113 MMOL/L (98-107); CREATININE FOR GFR 0.71 MG/DL (0.55-1.30); GLOMERULAR FILTRATION RATE > 60.0 (>45); GLUCOSE, FASTING 98 MG/DL (74-106); POTASSIUM SERUM 3.7 MMOL/L (3.5-5.1); SODIUM LEVEL 148 MMOL/L (136-145); THYROID STIMULATING HORMONE 1.993 uIU/ML (0.55-4.78); TOTAL PROTEIN 7.4 G/DL (5.7-8.2)
[2023-08-10 15:11] LABS: CPK CREATINE PHOSPHOKINASE 56 U/L (34-145); MB/CK RELATIVE INDEX 1.78 (< OR =4)
[2023-08-10 16:35] LABS: CK-MB VALUE MASS 1.2 NG/ML (<3.6)
[2023-08-10 16:36] LABS: MB/CK RELATIVE INDEX 2.1 (< OR =4)
[2023-08-10 19:11] VITALS: BP 111/57
[2023-08-10 19:30] VITALS: TEMP 98.2; O2SAT 94
[2023-08-14] MEDS ORDERED: ZONI100C67 PO (18:01)
[2023-08-14] MEDS ORDERED: DEPA1CAP PO (18:01)
== END 2023-08-10 19:52 | disposition home or self-care (01) ==
LOC: M ED 11:59 → EDBD 11:59 → M ED 19:52
DX: F03.90 Unspecified dementia, unspecified severity, without behavioral disturbance, psychotic disturbance, mood disturbance, and anxiety (principal); N39.0 Urinary tract infection, site not specified; R56.9 Unspecified convulsions; F41.9 Anxiety disorder, unspecified; F32.A Depression, unspecified; Z79.899 Other long term (current) drug therapy

== ENCOUNTER → 2023-08-10 | Outpatient (REF) | payer MEDICARE, MEDICAID ==
[~2023-08-10] MED LIST changes: -DEPA1CAP PO
== END ==
PROVIDERS: ATTEND Internal Medicine
DX: J18.9 Pneumonia, unspecified organism (principal); Z53.8 Procedure and treatment not carried out for other reasons

== ENCOUNTER → 2023-08-11 | Outpatient (REF) | payer MEDICARE, MEDICAID ==
[~2023-08-11] MED LIST changes: +ATIV1TAB10 PO; +DEPA1CAP PO; +HYOS125TA PO; +MORP1SOL5 PO
[2023-08-11 10:04] LABS: BASO % 0.5 % (0.0-1.0); EOS % 0.4 % (0.0-3.0); HEMATOCRIT 44.2 % (36.0-47.0); HEMOGLOBIN 14.6 g/dl (12.0-15.5); LYMPH % 23.6 % (24.0-44.0); MEAN CORPUSCULAR HEMOGLOBIN 32.1 pg (27.0-33.0); MEAN CORPUSCULAR VOLUME 97.1 fl (80.0-96.0); MONO # 1.1 10^3/uL (0.0-0.8); MONO % 12.6 % (2.0-8.0); NEUTROPHILS # 5.4 10^3/uL (1.5-8.5); NEUTROPHILS % 62.4 % (36.0-66.0); PLATELET COUNT, AUTOMATED 181 10^3/uL (150-450); RED BLOOD COUNT 4.55 10^6/uL (4.00-5.40); WHITE BLOOD COUNT 8.6 10^3/uL (4.0-10.0)
[2023-08-11 10:34] LABS: VALPROIC ACID (DEPAKOTE) 31.3 UG/ML (50.0-100.0)
[2023-08-11 10:35] LABS: BLOOD UREA NITROGEN 18 MG/DL (9-23); CARBON DIOXIDE LEVEL 20 MMOL/L (20-31); CHLORIDE LEVEL 115 MMOL/L (98-107); CREATININE FOR GFR 0.67 MG/DL (0.55-1.30); GLOMERULAR FILTRATION RATE > 60.0 (>45); GLUCOSE, FASTING 89 MG/DL (74-106); POTASSIUM SERUM 3.8 MMOL/L (3.5-5.1); SODIUM LEVEL 147 MMOL/L (136-145)
== END ==
PROVIDERS: ATTEND Internal Medicine
DX: R41.0 Disorientation, unspecified (principal)

== ENCOUNTER → 2023-08-14 | Outpatient (REF) | payer MEDICARE, MEDICAID ==
[2023-08-14 11:34] LABS: HEMATOCRIT 43.2 % (36.0-47.0); HEMOGLOBIN 14.5 g/dl (12.0-15.5); MEAN CORPUSCULAR HEMOGLOBIN 31.9 pg (27.0-33.0); MEAN CORPUSCULAR HGB CONC 33.6 g/dl (32.0-36.5); MEAN CORPUSCULAR VOLUME 94.9 fl (80.0-96.0); PLATELET COUNT, AUTOMATED 180 10^3/uL (150-450); RED BLOOD COUNT 4.55 10^6/uL (4.00-5.40); WHITE BLOOD COUNT 12.6 10^3/uL (4.0-10.0)
[2023-08-14 12:13] LABS: BLOOD UREA NITROGEN 13 MG/DL (9-23); CALCIUM LEVEL 8.5 MG/DL (8.3-10.6); CARBON DIOXIDE LEVEL 22 MMOL/L (20-31); CHLORIDE LEVEL 107 MMOL/L (98-107); CREATININE FOR GFR 0.61 MG/DL (0.55-1.30); GLOMERULAR FILTRATION RATE > 60.0 (>45); GLUCOSE, FASTING 92 MG/DL (74-106); SODIUM LEVEL 142 MMOL/L (136-145)
[2023-08-14 13:55] LABS: VALPROIC ACID (DEPAKOTE) 63.3 UG/ML (50.0-100.0)
[2023-08-14 14:00] LABS: THYROID STIMULATING HORMONE 1.365 uIU/ML (0.55-4.78)
== END ==
PROVIDERS: ATTEND Physician Assistant
DX: N39.0 Urinary tract infection, site not specified (principal); R53.83 Other fatigue

== ENCOUNTER → 2023-08-16 | Outpatient (REF) | payer MEDICARE, MEDICAID | PROVIDERS: ATTEND Internal Medicine | DX: G40.909 Epilepsy, unspecified, not intractable, without status epilepticus (principal); Z53.8 Procedure and treatment not carried out for other reasons ==